=== PATIENT | female | born 1960 | race Caucasian/White ===

== ENCOUNTER 2016-08-22 05:17 | Inpatient (IN) | payer MEDICARE ==
[~2016-08-22] VITALS: Ht 160 cm; Wt 120.4 kg
[2016-08-22] VITALS (7 sets, daily range): BP systolic 105–154; BP diastolic 51–107
[~2016-08-22 05:17] MED LIST: ALPARAZOLAM0.5 MG PO; AMLO5TAB PO; B12 INJ.,1000 MCG/M IM; C-10001000 MG PO; CIPRO 500MG TA500 MG PO; DEPAKOTE 500MG500 MG PO; DOXYCYCLINE HY100 M4 PO; ESCITALOPRAM 2020 MG PO; FLAGYL 500MG.500 MG PO; FUROSEMIDE 20MG20 MG PO; HEARTBURN RELI200 MG PO; IMITREX100 MG PO; KEPPRA XR500 MG PO; LEXAPRO 10 MG T10 MG PO; LORATADINE10 MG PO; LORTAB 5/500 501 TAB PO; METOPROLOL SUCC25 M1 PO; NITROSTAT0.4 MG SL; NORTRIPTYLINE H75 MG PO; NORTRIPTYLINE10 MG PO; PERCOCET 650 MG1 TAB PO; PHENERGAN 25MG.25 M1 PO; PRAVASTATIN20 MG PO; PREDNISONE 10MG10 MG PO; PREMPRO1 TAB PO; PROTONIX 40MG T40 MG PO; PYRIDOXINE PO; RITE AID BIO2500 MCG PO; TESSALON PERLE200 MG PO; TYLENOL W/CODEI1 TA2 PO; VERAPAMIL HCL40 MG PO; VERAPAMIL HCL80 MG PO; VITAMIN B-12100 MCG PO; VITAMIN D400 UNI1 PO; VITAMIN D50000 I1 PO; XANAX 0.5MG TA0.5 MG PO
[2016-08-22] MEDS ORDERED: VERAPAMIL HCL40 MG PO (05:22)
[2016-08-22] MEDS ORDERED: VITAMIN D3 COM1 EACH PO (05:23)
[2016-08-22] MEDS ORDERED: LOSARTAN POTAS100 MG PO (05:26)
[2016-08-22] MEDS ORDERED: PHENERGAN W/CO473 ML PO (05:27)
--- NOTE | 2016-08-22 06:02 | Emergency Room Report ---
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 PT STATES SHE IS HAVING PAIN IN LEFT KNEE AND ANKLE Onset of symptoms date/time:08/22/16 or onset unknown for: Treatment Prior to Arrival: PT TRANSPORTED TO ED BY [facility] AT 0445. [facility] Provided by:EMT Sepsis Risk Assessment: Temp: 98.6 B/P: 144/107 MAP: 119 Pulse: 109 Resp: 18 Recent fever? N Clinical Suspician of Infection? N Mental Status: 1 - Regular (Normal Baseline) Sepsis Risk:Low Sepsis Risk Have you (or family members/close friends) recently traveled outside the [place]? N If Yes, where/when: Have you had exposure to infectious disease within the past month? N TB? Other? Specify: Comment The patient is brought in by ambulance after a fall complaining of LEFT knee and ankle injury. She says that she developed a cough with yellow sputum and blood and a fever up to 102 degrees as well as shortness of breath and wheezing 6 days ago. She saw her primary care provider on Monday and was put on steroids. She says that she is ALLERGIC to steroids and since then has been shaky and weak. Her legs gave out on her tonight and she fell. ALLERGIES Coded Allergies: prednisone (08/22/16) Home Medications Reported Medications PYRIDOXINE HCL (Pyridoxine (B6) 50MG) 50 MG PO DAILY Levetiracetam (Keppra Xr) 1,500 MG PO BID APAP 300MG W/CODEINE 30MG (Acetaminophen-Cod #3 Tablet) 1 TAB PO Q6HP Divalproex Sodium (Depakote) 750 MG PO BID NORTRIPTYLINE HCL (Nortriptyline Hydrochloride) 100 MG PO QHS Escitalopram Oxalate (Escitalopram 20MG) 10 MG PO DAILY Verapamil Hcl (Verapamil) 120 MG PO TID Mv-Mn/Iron/FA/Herbal Cmplx#190 (Vitamin D3 Complete Caplet) 1 EACH PO WEEKLY Losartan Potassium (Losartan 100MG) 100 MG PO DAILY PROMETHAZINE W/CODEINE (Promethazine-Codeine Syrup) 2.5 ML PO Q4HP PRN COUGH History Medical History General CAD? No Angina: No [place]: No Hypertension? Yes Hyperlipidemia? Yes CHF? No DVT? No PE? No COPD? No Asthma? No Anemia? No GERD? Yes Gastric ulcers? No GI Bleed? No Hernia? No Thyroid Problems? No Hypothyroidism? No CVA? No Seizures? Yes Diabetes? No Renal Insuffiency? No End Stage Renal Disease? No UTI? No Stones? Yes BPH? No GB Disease: Yes Nephritic Syndrome? No Asplenia? No Hepatitis? No Sickle Cell Disease? No Arthritis? Yes Migraines? Yes Cataracts? No Glaucoma? No MRSA? No HIV? No TB? No Anxiety? Yes Depression? Yes Cancer? 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 denies: nose discharge. Respiratory cough, shortness of breath, wheezing Musculoskeletal see HPI Physical Exam Vital Signs Vital Signs Date Time Temp Pulse Resp B/P Pulse O2 O2 Flow FiO2 Ox Delivery Rate 08/22 0650 108 18 155/38 90 2 08/22 0633 2 08/22 0633 2 08/22 0617 88 08/22 0517 98.6 109 18 144/107 95 General Appearance normal appearance, WD/WN Eye Exam - bilateral eye normal exam, bilateral eye PERRL, bilateral eye EOMI Ear, Nose, Throat hearing grossly normal, normal ENT inspection, Oropharynx unremarkable Neck normal inspection, non-tender, supple, full range of motion Respiratory Status Yes: trachea midline, chest symmetrical, non tender chest. No: respiratory distress. Lung Sounds bilateral: normal breath sounds, lungs clear. Cardiovascular normal exam, regular rate/rhythm, no peripheral edema, no gallop, no JVD, no murmur, no rub, normal peripheral pulses Peripheral Pulses Pulses normal Yes Gastrointestinal normal bowel sounds, normal exam, non tender, soft, no organomegaly Back normal inspection, no CVA tenderness, no vertebral tenderness Extremities 2+ pitting edema of both lower extremities., diffuse tenderness LEFT knee without effusion, ecchymosis, edema, or deformity., tenderness of the LEFT ankle medial and lateral without ecchymosis. Distal neurovascular status intact. No deformity. 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 No Abram was queried for this patient? Yes Reference #: [id number] Comment 17 rxs. last rx 120 tyl #3 on 08/06/16. Results/Orders Laboratory Tests 08/22/16 0650: Influenza Type A Ag NOT DETECTED, Influenza Type B Ag NOT DETECTED 08/22/16 0637: Lactic Acid 1.5, Peripheral Blood Smear Pending 08/22/16 0637: Sodium 141, Potassium 4.0, Chloride 103, Carbon Dioxide 32, BUN 21 H, Creatinine 0.9, Estimated Creat Clear 122, Estimated GFR (MDRD) 64, Glucose 73 L, Calcium 8.7, Total Bilirubin 0.6, AST 21, ALT 18, Alkaline Phosphatase 218 H , Total Protein 6.0 L, Albumin 1.8 L, Globulin 4.2 H, Albumin/Globulin Ratio 0.4 L, WBC 36.8 *H, RBC 4.32, Hgb 9.5 L, Hct 31.6 L, MCV 73.1 L, RDW 18.2 H , Plt Count 450 H, MPV 8.0, Gran % 90.3 H, Gran # 33.4 H, Total Counted 100, Lymphocytes % 5.4 L, Monocytes % 3.5, Eosinophils % 0.3, Basophils % 0.6, Neutrophils 83 H, Band Neutrophils 2, Lymphocytes (Manual) 5 L, Lymphocytes # 2.0, Monocytes (Manual) 3, Monocytes # 1.3 H, Eosinophils # 0.1, Basophils # 0.2, Metamyelocytes 3 H, Myelocytes 2 H, Promyelocytes 2, Platelet Estimate SLIGHT INCREASE, Hypochromasia 2+, Anisocytosis 2+, Microcytosis 1+, PUBS MCHC 30.1 L, MCH 22.0 L, Mycoplasma pneumon IgM NON-REACTIVE Current Medication Orders Sig/Hema Start time Last Medication Dose Route Stop Time Status Admin Azithromycin 500 MG ONCE ONE 08/22 714 DC 08/22 Sodium Chloride 250 ML IV 08/22 0814 0745 Ceftriaxone Sodium 1 GM ONCE ONE 08/22 0615 DC 08/22 Sodium Chloride 50 ML IV 08/22 0744 0711 Ceftriaxone Sodium 0 .STK-MED ONE 08/22 0707 DC IV Sodium Chloride 50 ML .STK-MED ONE 08/22 0706 DC IV Albuterol/Ipratropium 3 ML ONCE ONE 08/22 0630 DC 08/22 INH 08/22 0631 0632 Albuterol/Ipratropium 0 .STK-MED ONE 08/22 0630 DC INH Sodium Chloride 10 ML PRN PRN 08/22 0615 AC IV 08/23 0615 Orders Procedure Date/time Status Decision to admit 08/22 719 Active DIFFERENTIAL-WBC 08/22 636 Complete RT O2 Installation/Change Set 08/22 632 Active RT O2 Therapy, Monitor/Maintai 08/22 632 Active RT Aerosol Treatment, Provide 08/22 632 Active RT REQUEST DUONEB 08/22 628 Active CHEST-PORTABLE 08/22 615 Active IV SALINE LOCK 08/22 615 Active OXYGEN PER NURSE 08/22 615 Active CULTURE, SPUTUM 08/22 615 Active CULTURE, BLOOD 08/22 615 Active LACTIC ACID 08/22 615 Complete INFLUENZA A&B ANTIGENS 08/22 0616 Complete CBC WITH AUTO DIFF 08/22 615 Complete CHEM 12 PROFILE 08/22 615 Complete KNEE-3 VIEWS-LT 08/22 527 Active ANKLE-LT-3 VIEWS 08/22 527 Active XRAY/CT/US XRAY/CT/US XRAY chest, ankle, knee Comment X-ray interpreted by Jacinto Hansen M.D.: Knee: Degenerative changes with spurs, no fracture or dislocation Ankle: Degenerative changes, old ossicles distal to each malleolus, no change from prior x-ray, no acute fracture or dislocation Chest: Large infiltrate RIGHT upper lung and RIGHT lower lung Progress - The patient was seen in the emergency department by Dr. Pulido. Departure Departure Disposition Still a Patient Clinical Impression Primary Impression: Community acquired pneumonia Secondary Impressions: Respiratory failure with hypoxia Qualifiers: Chronicity: acute Qualified Code: J96.01 - Acute respiratory failure with hypoxia Condition STABLE Referrals Brian STARK,Tj [facility] ED Critical Care Critical Care Yes Time spent 30-74 min Vital system(s) involved: Respiratory Failure I was present at bedside for Coordinating pt's care, During my initial exam, Reviewing lab results, Discussing pt condition, Examining radiographs at 0918
[2016-08-22 06:51] LABS: HEMOGLOBIN 9.5 g/dL (12.2-16.2); LYMPH % 5.4 % (10-50.0)
[2016-08-22 07:31] LABS: NEUTROPHILS 83 % (42-76)
--- NOTE | 2016-08-22 12:14 | HISTORY AND PHYSICAL REPORT ---
Demographics: Admit date: 08/22/16 Chief complaint: Fall PRIMARY DIAGNOSIS: community-acquired pneumonia Allergies: Coded Allergies: prednisone (08/22/16) History of present illness: History of present illness: 56-year-old female with medical history significant for hypertension and seizures as well as arthritis of the lower extremities presented to the emergency department early this morning with complaints of LEFT knee and ankle pain after a fall at home. Patient states she been so weak she simply fell injuring her LEFT leg. Workup was begun in the emergency department from an orthopedic standpoint LEFT ankle and knee were stable. In the process of evaluation it was detected that patient was hypoxic with a room air O2 sat of 81 percent. Patient then gave additional history that she was seen in my office a week ago with cough and chest congestion. She was prescribed either a Medrol Dosepak or a Z-Reynaldo, the patient does not recall which one and diagnosed with bronchitis. Additional workup in the emergency department revealed RIGHT lung pneumonia and she has been admitted for treatment of her pneumonia due to the additional findings of white count of 38,000 and her hypoxia. Past medical history: Family HX Family Hx Insignificant Yes Immunization HX DT/Tetanus > 10 Years Ago Flu NEVER Pneumonia Refuses General CAD? No Angina: No [place]: No Hypertension? Yes Hyperlipidemia? Yes CHF? No DVT? No PE? No COPD? No Asthma? No Anemia? No GERD? Yes Gastric ulcers? No GI Bleed? No Hernia? No Thyroid Problems? No Hypothyroidism? No CVA? No Seizures? Yes Diabetes? No Renal Insuffiency? No UTI? No Stones? Yes BPH? No GB Disease: Yes Nephritic Syndrome? No Asplenia? No Hepatitis? No Sickle Cell Disease? No Arthritis? Yes Migraines? Yes Cataracts? No Glaucoma? No MRSA? No HIV? No TB? No Anxiety? Yes Depression? Yes Cancer? No Past Surgical HX Previous Surgery?Y Gallbladd Appendectomy GALL STONES TUBAL GASTRIC BYPASS Current home meds: Reported Medications APAP 300MG W/CODEINE 30MG (Acetaminophen-Cod #3 Tablet) 1 TAB PO Q6HP PYRIDOXINE HCL (Pyridoxine (B6) 50MG) 50 MG PO DAILY Levetiracetam (Keppra Xr) 1,500 MG PO BID Divalproex Sodium (Depakote) 750 MG PO BID NORTRIPTYLINE HCL (Nortriptyline Hydrochloride) 100 MG PO QHS Escitalopram Oxalate (Escitalopram 20MG) 10 MG PO DAILY Verapamil Hcl (Verapamil) 120 MG PO TID Mv-Mn/Iron/FA/Herbal Cmplx#190 (Vitamin D3 Complete Caplet) 1 EACH PO WEEKLY Losartan Potassium (Losartan 100MG) 100 MG PO DAILY PROMETHAZINE W/CODEINE (Promethazine-Codeine Syrup) 2.5 ML PO Q4HP PRN COUGH Social Hx: Smoking HX Tobacco No Type N/A Are you/the child exposed to second-hand smoke: No Alcohol Alcohol: No Hx of Drug Use Drug Use? No Patien't marital status is Patient's support system is good Review of systems: Constitutional fever, weakness. Respiratory cough, shortness of breath. Cardiovascular No chest pain, No palpitations Gastrointestinal/Abdominal no symptoms reported Genitourinary no symptoms reported. Musculoskeletal see HPI. Neurological Yes: no symptoms reported. Exam: Lab data for last 24 hours: Laboratory Tests 08/22/16 0650: Influenza Type A Ag NOT DETECTED, Influenza Type B Ag NOT DETECTED 08/22/16 0637: Lactic Acid 1.5 08/22/16 0637: Sodium 141, Potassium 4.0, Chloride 103, Carbon Dioxide 32, BUN 21 H, Creatinine 0.9, Estimated Creat Clear 122, Estimated GFR (MDRD) 64, Glucose 73 L, Calcium 8.7, Total Bilirubin 0.6, AST 21, ALT 18, Alkaline Phosphatase 218 H , Total Protein 6.0 L, Albumin 1.8 L, Globulin 4.2 H, Albumin/Globulin Ratio 0.4 L, WBC 36.8 *H, RBC 4.32, Hgb 9.5 L, Hct 31.6 L, MCV 73.1 L, RDW 18.2 H , Plt Count 450 H, MPV 8.0, Gran % 90.3 H, Gran # 33.4 H, Total Counted 100, Lymphocytes % 5.4 L, Monocytes % 3.5, Eosinophils % 0.3, Basophils % 0.6, Neutrophils 83 H, Band Neutrophils 2, Lymphocytes (Manual) 5 L, Lymphocytes # 2.0, Monocytes (Manual) 3, Monocytes # 1.3 H, Eosinophils # 0.1, Basophils # 0.2, Metamyelocytes 3 H, Myelocytes 2 H, Promyelocytes 2, Platelet Estimate SLIGHT INCREASE, Hypochromasia 2+, Anisocytosis 2+, Microcytosis 1+, PUBS MCHC 30.1 L, MCH 22.0 L, Mycoplasma pneumon IgM NON-REACTIVE Microbiology 08/22 636 BLOOD: Anaerobic Blood Culture - RECD 08/22 636 BLOOD: Aerobic Blood Culture - RECD 08/22 636 BLOOD: Anaerobic Blood Culture - RECD 08/22 636 BLOOD: Aerobic Blood Culture - RECD 08/22 615 SPUTUM: Sputum Culture - ORD 08/22 615 SPUTUM: Gram Stain - ORD Admission vital signs: 1ST Vital Signs Result Date Time Pulse Ox 95 08/22 516 B/P 144/107 08/22 516 Temp 98.6 08/22 516 Pulse 109 08/22 516 Resp 18 08/22 516 O2 Flow Rate 2 08/22 632 Additional information: Patient is mildly tachypnea even with nasal cannula oxygen in place. Pupils are reactive to light. External ears are normal. Oropharynx is clear with moist mucous membranes. Neck has no lymphadenopathy. Lungs have rales in both upper and lower lobes of the RIGHT lung. LEFT lung is clear. Heart has regular rate and rhythm. Abdomen is obese and soft. Extremities have no edema. Patient has palpable joint line tenderness along the LEFT knee as well as pain in the LEFT ankle with range of motion. Plan: Problem List 1. Community acquired pneumonia 2. Respiratory failure with hypoxia 3. BMI 45.0-49.9, adult 4. Ankle sprain Plan: Admit for IV antibiotics, serial x-rays and complete blood counts. Home medicines of been ordered.
--- NOTE | 2016-08-22 13:40 | PHARMACY CLINIC NOTE ---
Patient Demographics Patient Demographics Admission date: 08/22/16 Date: 08/22/16 Time: 1339 Allergies Coded Allergies: prednisone (08/22/16) HEIGHT- FT: 5 IN: 3.00 K.400 VTE General Information Labs: Laboratory Tests 08/22 0637 Hematology Hgb (12.2 - 16.2 g/dL) 9.5 L Hct (37.0 - 47.0 %) 31.6 L Plt Count (142 - 424 K/mm3) 450 H Disclaimer The following section includes nursing documentation that has been pulled in for pharmacy review. Clinical trial participant? No VTE prophylaxis [id number] VTE prophylaxis ordered? Yes Type of prophylaxis/treatment: LUANNE at 1341
[2016-08-22] MEDS ORDERED: NORTRIPTYLINE H25 M1 PO (13:43)
[2016-08-22] MEDS ORDERED: LEXAPRO 10 MG T10 MG PO (13:43)
--- NOTE | 2016-08-22 20:11 | RADIOLOGY REPORT PS360 ---
CHEST-PORTABLE ORDERING PHYSICIAN : Jacinto Hansen MD PATIENT AGE: 56 years GENDER: Female INDICATION: cough, fever TECHNIQUE: AP portable chest COMPARISON: Previous chest film 01/31/2010 FINDINGS Pneumonia right lung Very dense Dense, prominent consolidation with air bronchogram at right upper lobe extending peripherally Slightly less dense infiltrate throughout right lower lobe. Partially obscures right hemidiaphragm The left lung appears stable. Heart appears upper normal size. Right tish is upper normal prominence. Follow-up chest film important to resolution of exclude underlying abnormality right tish. Superior mediastinum satisfactory. IMPRESSION: Pneumonia throughout right lung. Dense consolidation most pronounced at right upper lobe. Diffuse infiltrate also seen right lower lobe Also note generous right tish currently.-Will be Important to follow this pneumonia to resolution to exclude underlying lesion
--- NOTE | 2016-08-22 20:20 | RADIOLOGY REPORT PS360 ---
KNEE-3 VIEWS-LT ORDERING PHYSICIAN : PATIENT AGE: 56 years GENDER: Female INDICATION: INJURY, PAIN Knee pain injury fall left knee pain TECHNIQUE: 3 views left knee COMPARISON: 06/25/2014 left knee. Also 2011 study left knee. FINDINGS Today's nonweightbearing views do show degenerative arthritic changes left knee with narrowing of the medial compartment. Tricompartmental marginal osteophytes are most pronounced and exuberant at the medial aspect of the joint. Scant joint effusion. No fracture evident. There is prominent soft tissue edema throughout the subcutaneous fat. Suggesting edematous state or diffuse lung edema. IMPRESSION: Arthritic changes left knee most evident at medial compartment.- Similar to previous 2013 studies No acute fracture. Suspect small joint effusion at knee Diffuse soft tissue edema throughout the left leg also noted.
--- NOTE | 2016-08-22 20:27 | RADIOLOGY REPORT PS360 ---
ANKLE-LT-3 VIEWS ORDERING PHYSICIAN : PATIENT AGE: 56 years GENDER: Female INDICATION: INJURY, PAIN ankle. Swelling. TECHNIQUE: 3 views left ankle COMPARISON: 10/20/2013 left ankle FINDINGS When compared to the prior study there is a change in appearance at the tip of the lateral malleolus . Appears to be some erosive change here. This could be due avulsion fracture, but with overall question there may be another process accounting for this loss of bone at the tip of the lateral malleolus. May want to exclude exclude gout. An usual site for ostomy myelitis. Doubt other erosive arthritic disease at this point. This will benefit from follow-up. May want to consider MR or CT to further evaluate when feasible. . Orthopedic consult may be helpful is a suspect the patient likely mid for her pneumonia on today's chest film. . There is diffuse swelling throughout left leg including left ankle on which is seen throughout the leg not only at the lateral malleolus. The ankle mortise appears intact. Dome of talus intact. Old stable Fragmentation off tip of medial malleolus is likely reflects old injury and or accessory ossicle... Unchanged IMPRESSION: ------ Irregular appearance at the tip of the lateral malleolus, definite change since prior 2009 and 2013 ankle radiograph . Although question the possibility of avulsion fracture a I am more concerned that this reflects some other erosive process erosive process. Orthopedic consult suggested. Further evaluation may be warranted when feasible . Note comments in text
[2016-08-23] VITALS (8 sets, daily range): BP systolic 122–149; BP diastolic 58–79
--- NOTE | 2016-08-23 07:08 | ACUTE CARE PROGRESS NOTE (QUA) ---
Progress Notes Admission Date: 08/22/16 Antimicrobial stewardship: If this patient was administered antibiotics in the last 48 hours please complete the antimicrobial stewardship section of this template. Subjective Date 08/23/16 Time 0704 Note Patient has no new complaints. She believes her dyspnea is improved. Her reports she is still quite weak and she could not hold onto that can of soda. Patient fell overnight while attempting to go to the bathroom. Patient states her LEFT leg just gave out on her. Patient has crackles primarily in the mid lung posteriorly this morning and base. Improved aeration compared to yesterday. Official ankle x-ray report reveals erosive changes at the lateral malleolus. Blood cultures preliminarily appear to be strep pneumonia Continue current antibiotics. Repeat complete blood count this morning. CT scan of the LEFT ankle Objective Findings Last VS-Temp:97.6 B/P:149/78 Pulse:78 Resp:20 SaO2:97 OXYGEN Last weight lbs:259 oz:6 K.651 Method:Bed Scales Reviewed: medications, vital signs, lab results Assessment/Plan Problem List 1. Community acquired pneumonia 2. Respiratory failure with hypoxia Qualifiers: Chronicity: acute Qualified Code: J96.01 - Acute respiratory failure with hypoxia 3. BMI 45.0-49.9, adult 4. Ankle sprain Patient condition Stable This inpt stay is expected to cross 2 MNs from start of care Yes Antibiotic Stewardship (2) Current Culture Results Microbiology 08/22 636 BLOOD: Anaerobic Blood Culture - RES 08/22 636 BLOOD: Aerobic Blood Culture - RES 08/22 615 SPUTUM: Sputum Culture - ORD 08/22 615 SPUTUM: Gram Stain - ORD Infxn that will respond? Yes Right drug,dose,and route? Yes More targeted antbx? Yes How long atbx needed? 14 at 0707
[2016-08-23 07:14] LABS: LYMPH # 2.5 K/mm3 (0.7-4.5); LYMPH % 11.4 % (10-50.0)
[2016-08-23 07:22] LABS: HEMOGLOBIN 8.4 g/dL (12.2-16.2)
[2016-08-23 08:50] LABS: NEUTROPHILS 73 % (42-76)
--- NOTE | 2016-08-23 09:20 | RADIOLOGY REPORT PS360 ---
CT EXT.LOWER-LT-W/O CONTRAST INDICATION: Pain and swelling following injury, abnormal radiograph RECENT FALL,SWELLING, ABNORMAL XRAY ORDERING PHYSICIAN: Ramin Pulido MD PATIENT AGE: 56 years COMPARISON: Radiograph of 08/22/2016 TECHNIQUE: Axial images are obtained without contrast. Sagittal and coronal reformatted images are reviewed as well. FINDINGS: There is extensive soft tissue swelling in the lower extremity with subcutaneous edema. Prominent superficial veins are also noted consistent with varices. There is nondisplaced fracture involving the posterior distal tibia extending into the posterior articular surface. Comminuted avulsion fracture involves the fibular tip. In addition, there are several small calcific densities at the tip of the fibula as noted on the radiograph. These are separate from the avulsion fracture fragment. There is a small avulsion fracture involving the medial malleolus well.. In addition there is an avulsion fracture involving the lateral and anterior aspect of the tibia. This is anterior to the tibiofibular junction. The talar dome has an unremarkable appearance. IMPRESSION: 1. Acute fractures involving the first or distal tibia nondisplaced, anterior lateral tibia minimally displaced x 3 mm, an avulsion fracture of the tip of the lateral malleolus. 2. There are several faint radiodensities at the tip of the lateral malleolus. This could be sequela from old injury. Continued follow-up recommended. A lytic process is felt to be less likely but not totally excluded. 3. Extensive soft tissue slight about the ankle IMPRESSION:
--- NOTE | 2016-08-23 16:49 | CONSULT NOTE ---
Consultation findings: Referring physician: Dr. Pulido Date of examination: 08/23/16 Time of examination: 1200 Exam findings: The patient is a 56-year-old female who has been medically problems including a seizure disorder. She is a somewhat poor historian but recalls falling on Monday. She states she was not able to walk and finally presented to the emergency department with LEFT ankle pain and also progressive chest pain. There are ER evaluation for her LEFT ankle, she was noted to be short of breath and a workup led to the diagnosis of a pneumonia with a white count elevated to approximately 38,000. The patient has been admitted for care of these issues. Examination shows the patient to be lying in bed comfortably sleeping. Directed examination of the LEFT lower extremity shows pedal pulses to be intact. The LEFT lower extremity is somewhat edematous. She is sensate to light touch. She is mildly tender over the medial malleolus and a bit more tender over the lateral malleolus. X-rays and a CT scan reviewed. These show we will send fractures of the posterior tibial plafond (posterior malleolus fracture) seems to involve approximately 10 percent of the articular surface. This is very minimally displaced. There is also avulsion fractures involving the distal fibula as well as what appears to be evidence of prior avulsion fractures and what appears to be a recent avulsion injury of the medial malleolus. Impression: 1) posterior malleolar fracture, minimally displaced 2) recent avulsion fracture of both the medial and lateral malleolus Recommendations: From the perspective of the avulsion fractures, we would typically treat these much like an ankle sprain. Her posterior malleolar fracture would likely better be served by treating her in a posterior splint initially and then transitioning to a short leg cast. It could be treated in a Cam Walker however, the patient may not be willing to keep this on at all times. She is experiencing discomfort with the required dorsiflexion of the ankle necessary to position a splint at this time, we will request the nurses elevate the ankle as much as possible tonight and will attempt to dorsiflex the ankle a bit in the morning sufficient to allow a splint to dry. In the meantime, recommend nonweightbearing LEFT ankle and elevation as much as possible for tonight. at 5649
[2016-08-24] VITALS (8 sets, daily range): BP systolic 119–149; BP diastolic 70–95
--- NOTE | 2016-08-24 08:12 | ACUTE CARE PROGRESS NOTE (QUA) ---
Progress Notes Admission Date: 08/22/16 Antimicrobial stewardship: If this patient was administered antibiotics in the last 48 hours please complete the antimicrobial stewardship section of this template. Subjective Date 08/24/16 Time 0809 Note Patient has no complaints this morning. She feels less dyspneic. Her cough remains productive. She appears well but is using nasal cannula oxygen. Lungs have rales in the mid chest anteriorly and base posteriorly. Heart has a regular rate and rhythm. Abdomen is soft. LEFT ankle is resting elevated on pillow Blood cultures are growing Streptococcus pneumonia sensitive to Rocephin While patient is still here in the hospital her Rocephin will be changed to 2 g every 12 hours. PICC line will be inserted today. Repeat chest x-ray. I appreciate the orthopedic service, Dr. Craig, evaluation of the patient and he plans to see her again today. Objective Findings Last VS-Temp:97.9 B/P:141/71 Pulse:100 Resp:18 SaO2:92 OXYGEN Last weight lbs:258 oz:5 K.169 Method:Bed Scales Assessment/Plan Problem List 1. Community acquired pneumonia 2. Respiratory failure with hypoxia Qualifiers: Chronicity: acute Qualified Code: J96.01 - Acute respiratory failure with hypoxia 3. BMI 45.0-49.9, adult 4. Ankle sprain 5. Sepsis due to Streptococcus pneumoniae Patient condition Stable This inpt stay is expected to cross 2 MNs from start of care Yes Antibiotic Stewardship (2) Infxn that will respond? Yes Right drug,dose,and route? Yes More targeted antbx? Yes at 0811
--- NOTE | 2016-08-24 14:17 | RADIOLOGY REPORT PS360 ---
CHEST PORTABLE-PICC PLACEMENT CLINICAL INDICATION: PICC LINE INSERTION ORDERING PHYSICIAN: Ramin Pulido MD PATIENT AGE: 56 years COMPARISON: 08/22/2016 FINDINGS: Right upper extremity PICC line has been inserted with the tip in region of SVC. No change right-sided pneumonia in the upper and lower lobe IMPRESSION: Good position of the PICC line
[2016-08-25 06:55] LABS: HEMOGLOBIN 8.5 g/dL (12.2-16.2); LYMPH # 2.2 K/mm3 (0.7-4.5); LYMPH % 15.4 % (10-50.0)
[2016-08-25 08:19] VITALS: BP 153/72
--- NOTE | 2016-08-25 08:46 | ACUTE CARE PROGRESS NOTE (QUA) ---
Progress Notes Subjective Date 08/25/16 Time 0843 Note Patient reports feeling about the same. PICC line was placed yesterday. Her LEFT ankle is now in a short leg cast. She appears comfortable. Oropharynx is moist. Lungs still have rales in the RIGHT mid and posterior base. Heart has regular rate and rhythm. Chest x-ray showed pneumonia appears about the same used Continue Rocephin 2 g every 12 hours. Repeat complete blood count in the morning. Monitor her anemia as well as white count. Add incentive spirometry and she is to get out of bed to chair today Objective Findings Last VS-Temp:97.7 B/P:153/72 Pulse:83 Resp:20 SaO2:96 OXYGEN Last weight lbs:263 oz:3 K.38 Method:Bed Scales Laboratory Tests 08/25/16 0615: WBC 14.2 H, RBC 3.81 L, Hgb 8.5 L, Hct 27.9 L, MCV 73.3 L, RDW 19.0 H, Plt Count 387, MPV 7.8, Gran % 75.6, Gran # 10.7 H, Lymphocytes % 15.4, Monocytes % 6.0, Eosinophils % 2.0, Basophils % 1.0, Lymphocytes # 2.2, Monocytes # 0.9, Eosinophils # 0.3, Basophils # 0.1, PUBS MCHC 30.4 L, MCH 22.3 L Assessment/Plan Problem List 1. Community acquired pneumonia 2. Respiratory failure with hypoxia Qualifiers: Chronicity: acute Qualified Code: J96.01 - Acute respiratory failure with hypoxia 3. BMI 45.0-49.9, adult 4. Ankle sprain 5. Sepsis due to Streptococcus pneumoniae Patient condition Stable Plan: continue current care This inpt stay is expected to cross 2 MNs from start of care Yes Antibiotic Stewardship (2) Infxn that will respond? Yes Right drug,dose,and route? Yes More targeted antbx? Yes at 0845
[2016-08-25 10:13] VITALS: BP 153/72
[2016-08-25 11:49] VITALS: BP 134/90
--- NOTE | 2016-08-25 15:10 | ACUTE CARE PROGRESS NOTE ---
Progress note Date: 08/25/16 Assessment: Alert cooperative in no apparent distress. Sensate to light touch. Moves toes. No evident cast complications. Impression: 1. Community acquired pneumonia 2. Respiratory failure with hypoxia Qualifiers Chronicity: acute Qualified Code: J96.01 - Acute respiratory failure with hypoxia 3. BMI 45.0-49.9, adult 4. Ankle sprain 5. Sepsis due to Streptococcus pneumoniae Plan: From an orthopaedic standpoint, the patient should be touchdown weightbearing on the involved LEFT leg. Cast will help hold the posterior malleolar fragment in position. It is 10 percent or less of the articular surface and so should be amenable to closed nonsurgical treatment. Recommend elevation of the involved extremity to help decrease edema as well. Antibiotic Stewardship (2) Infxn that will respond? Yes Right drug,dose,and route? Yes More targeted antbx? Yes at 4200
[2016-08-25 16:00] VITALS: BP 113/63
[2016-08-25 19:52] VITALS: BP 154/94
[2016-08-25 21:55] VITALS: BP 154/94
[2016-08-26] VITALS (9 sets, daily range): BP systolic 113–145; BP diastolic 68–96
[2016-08-26 06:52] LABS: HEMOGLOBIN 8.2 g/dL (12.2-16.2); LYMPH # 2.8 K/mm3 (0.7-4.5)
--- NOTE | 2016-08-26 07:22 | ACUTE CARE PROGRESS NOTE (QUA) ---
Progress Notes Subjective Date 08/26/16 Time 0721 Note Patient has no complaints. She set up in a chair most of the day yesterday. On her incentive spirometer she can occasionally get the spirometer 2000 ML's. Her cough is producing clear sputum. She looks well. Lung exam is significant for dry crackles in the posterior aspect of the RIGHT lung. LEFT lung is clear. Continue Rocephin 2 g every 12 hours. Clinically patient is improving although chest x-ray is lagging behind. Continue current antibiotics. Transfer to swing bed if insurance is agreeable. Continue incentive spirometry and current level of activity Objective Findings Last VS-Temp:97.8 B/P:138/96 Pulse:91 Resp:20 SaO2:90 OXYGEN Last weight lbs:264 oz:9 K.004 Method:Bed Scales Laboratory Tests 08/26/16 0630: WBC 14.1 H, RBC 3.78 L, Hgb 8.2 L, Hct 27.9 L, MCV 73.9 L, RDW 19.6 H, Plt Count 413, MPV 7.6, Gran % 70.7, Gran # 10.0 H, Lymphocytes % 20.0, Monocytes % 6.0, Eosinophils % 2.2, Basophils % 1.0, Lymphocytes # 2.8, Monocytes # 0.9, Eosinophils # 0.3, Basophils # 0.1, PUBS MCHC 29.4 L, MCH 21.8 L Assessment/Plan Problem List 1. Community acquired pneumonia 2. Respiratory failure with hypoxia Qualifiers: Chronicity: acute Qualified Code: J96.01 - Acute respiratory failure with hypoxia 3. BMI 45.0-49.9, adult 4. Ankle sprain 5. Sepsis due to Streptococcus pneumoniae Patient condition Improving Plan: continue current care This inpt stay is expected to cross 2 MNs from start of care Yes Antibiotic Stewardship (2) Infxn that will respond? Yes Right drug,dose,and route? Yes More targeted antbx? Yes at 0722
--- NOTE | 2016-08-26 14:45 | ACUTE CARE PROGRESS NOTE ---
Progress note Date: 08/26/16 Assessment: Patient is awake, alert, no apparent distress. She complains of no pain in the LEFT ankle and states she has been compliant with touchdown weightbearing. Her cast is in appropriate degree of ankle dorsiflexion which should assist in holding the posterior malleolar fracture reduced. Toes are warm and dry in sensate to light touch. Capillary refill around 2 seconds. No cast complications noted. Impression: 1. Community acquired pneumonia 2. Respiratory failure with hypoxia Qualifiers Chronicity: acute Qualified Code: J96.01 - Acute respiratory failure with hypoxia 3. BMI 45.0-49.9, adult 4. Ankle sprain 5. Sepsis due to Streptococcus pneumoniae 6. Fracture, ankle Plan: I have advised the patient to maintain touchdown weightbearing for approximately 6 weeks. We'll plan on seeing her back in the clinic once she is discharged some roughly 10 days from now and x-raying her in the cast. Anticipate she'll need at least one cast change due to expected decrease in edema and muscle atrophy. From an orthopaedic standpoint she could be discharged when her medical condition has resolved sufficiently as determined by Dr. Pulido. Antibiotic Stewardship (2) Current Culture Results Microbiology 08/22 636 BLOOD: Anaerobic Blood Culture - COMP STREPTOCOCCUS PNEUMONIAE 08/22 636 BLOOD: Aerobic Blood Culture - COMP STREPTOCOCCUS PNEUMONIAE 08/22 615 SPUTUM: Sputum Culture - CAN Cancelled: Auto-cancelled after 3 days. 08/22 615 SPUTUM: Gram Stain - CAN Cancelled: Auto-cancelled after 3 days. Infxn that will respond? Yes Right drug,dose,and route? Yes More targeted antbx? Yes at 0411
[2016-08-27] VITALS (7 sets, daily range): BP systolic 123–148; BP diastolic 58–84
--- NOTE | 2016-08-27 08:06 | ACUTE CARE PROGRESS NOTE (QUA) ---
Progress Notes Subjective Date 08/27/16 Time 0804 Note Patient has no complaints this morning. She spent most of the day in the chair yesterday. She did go for brief periods without oxygen. Lowest documented room air sat is 86 percent yesterday evening. Cough is still productive. She denies dyspnea at rest. She's had mild dyspnea with exertion. She is awake and alert. Lungs continued to have rales in the RIGHT posterior mid lung and base with improved aeration. Continue Rocephin 2 g every 12 hours and repeat chest x-ray and labs in a.m. Objective Findings Last VS-Temp:97.7 B/P:148/84 Pulse:92 Resp:20 SaO2:92 OXYGEN Last weight lbs:264 oz:9 K.004 Method:Bed Scales Microbiology 08/27 717 SPUTUM: Sputum Culture - RES 08/27 717 SPUTUM: Gram Stain - RES Assessment/Plan Problem List 1. Community acquired pneumonia 2. Respiratory failure with hypoxia Qualifiers: Chronicity: acute Qualified Code: J96.01 - Acute respiratory failure with hypoxia 3. BMI 45.0-49.9, adult 4. Ankle sprain 5. Sepsis due to Streptococcus pneumoniae 6. Fracture, ankle Patient condition Improving Plan: continue current care This inpt stay is expected to cross 2 MNs from start of care Yes Antibiotic Stewardship (2) Infxn that will respond? Yes Right drug,dose,and route? Yes More targeted antbx? Yes
[2016-08-28] VITALS (8 sets, daily range): BP systolic 119–149; BP diastolic 56–80
[2016-08-28 06:52] LABS: HEMOGLOBIN 8.4 g/dL (12.2-16.2)
[2016-08-28 06:53] LABS: LYMPH # 2.4 K/mm3 (0.7-4.5); LYMPH % 16.1 % (10-50.0)
--- NOTE | 2016-08-28 07:23 | ACUTE CARE PROGRESS NOTE (QUA) ---
Progress Notes Admission Date: 08/22/16 Antimicrobial stewardship: If this patient was administered antibiotics in the last 48 hours please complete the antimicrobial stewardship section of this template. Subjective Date 08/28/16 Time 0721 Note Patient has no new complaints. She has been doing her best to ambulate in the room. She denies shortness of breath. Documented room air sats are at 90 percent. Patient is awake and alert this morning. Lungs have RIGHT basilar rales this morning. Heart has a regular rate and rhythm. Abdomen is soft and obese. Continue current antibiotic regimen. Repeat chest x-ray today. Objective Findings Last VS-Temp:98.3 B/P:119/68 Pulse:90 Resp:20 SaO2:94 OXYGEN Last weight lbs:261 oz:0 K.388 Method:Bed Scales Laboratory Tests 08/28/16 0630: WBC 14.6 H, RBC 3.91 L, Hgb 8.4 L, Hct 27.3 L, MCV 69.7 L, RDW 21.3 H, Plt Count 431 H, Gran % 77.0, Gran # 11.2 H, Lymphocytes % 16.1, Monocytes % 6.9, Lymphocytes # 2.4, Monocytes # 1.0, PUBS MCHC 30.8 L, MCH 21.5 L Assessment/Plan Problem List 1. Community acquired pneumonia 2. Respiratory failure with hypoxia Qualifiers: Chronicity: acute Qualified Code: J96.01 - Acute respiratory failure with hypoxia 3. BMI 45.0-49.9, adult 4. Ankle sprain 5. Sepsis due to Streptococcus pneumoniae 6. Fracture, ankle Patient condition Stable Plan: continue current care This inpt stay is expected to cross 2 MNs from start of care Yes Antibiotic Stewardship (2) Current Culture Results Microbiology 08/27 717 SPUTUM: Sputum Culture - RES 08/27 717 SPUTUM: Gram Stain - RES 08/22 636 BLOOD: Anaerobic Blood Culture - COMP STREPTOCOCCUS PNEUMONIAE 08/22 636 BLOOD: Aerobic Blood Culture - COMP STREPTOCOCCUS PNEUMONIAE Infxn that will respond? Yes Right drug,dose,and route? Yes More targeted antbx? Yes at 0722
--- NOTE | 2016-08-28 08:36 | RADIOLOGY REPORT PS360 ---
CHEST(2 VIEWS-NOT PORTABLE) HISTORY: pneumonia progress ORDERING PHYSICIAN: Ramin Pulido MD PATIENT AGE: 56 years COMPARISON: 08/24/2016 FINDINGS: The cardiomediastinal silhouette and pulmonary vascularity are within normal limits. Consolidation once again noted involving the right lung including right upper, right middle, and right lower lobe with mild right-sided volume loss and tracheal shift to the right. A central obstructing lesion is a consideration. Consider CT chest with contrast for further evaluation. Left lung remains clear. The pneumonia has slightly improved compared to the previous studies. No acute bony anomalies. Suspect small right effusion. PICC line remains in place IMPRESSION: 1. Persistent right-sided pneumonia with mild volume loss. A central obstructing lesion is a consideration. Consider chest CT with contrast for further evaluation. There has been mild improvement in the right sided pneumonia
[2016-08-29] VITALS (22 sets, daily range): BP systolic 103–144; BP diastolic 44–92
[2016-08-29 06:33] LABS: LYMPH # 2.3 K/mm3 (0.7-4.5); LYMPH % 17.7 % (10-50.0)
[2016-08-29 06:34] LABS: HEMOGLOBIN 7.9 g/dL (12.2-16.2)
--- NOTE | 2016-08-29 07:15 | ACUTE CARE PROGRESS NOTE (QUA) ---
Progress Notes Subjective Date 08/29/16 Time 0712 Note Patient is without complaints. She did develop some leg pain yesterday after being up for longer periods of time. This is improved with elevation of the leg. Chest x-ray was performed and shows mild improvement in her x-ray but still quite persistent infiltrates. Her cough is productive of clear sputum. She has not had any fevers. She is awake and alert. Lungs have crackles in the RIGHT mid lung and base heard posteriorly and laterally. Diminished breath sounds anteriorly. Better aeration in the RIGHT lung however. Heart has a regular rate and rhythm. Abdomen is obese and soft. 1. CT scan chest today 2. Transfuse 2 units packed red blood cells Objective Findings Last VS-Temp:97.9 B/P:116/59 Pulse:93 Resp:18 SaO2:90 OXYGEN Last weight lbs:261 oz:0 K.388 Method:Bed Scales Laboratory Tests 08/29/16 0620: WBC 12.7 H, RBC 3.78 L, Hgb 7.9 *L, Hct 28.4 L, MCV 75.2 L, RDW 21.0 H, Plt Count 486 H, MPV 7.9, Gran % 74.0, Gran # 9.4 H, Lymphocytes % 17.7, Monocytes % 6.3, Eosinophils % 1.6, Basophils % 0.5, Lymphocytes # 2.3, Monocytes # 0.8, Eosinophils # 0.2, Basophils # 0.1, PUBS MCHC 27.9 L, MCH 21.0 L Assessment/Plan Problem List 1. Community acquired pneumonia 2. Respiratory failure with hypoxia Qualifiers: Chronicity: acute Qualified Code: J96.01 - Acute respiratory failure with hypoxia 3. BMI 45.0-49.9, adult 4. Ankle sprain 5. Sepsis due to Streptococcus pneumoniae 6. Fracture, ankle Patient condition Improving Plan: continue current care, order additional tests This inpt stay is expected to cross 2 MNs from start of care Yes Antibiotic Stewardship (2) Infxn that will respond? Yes Right drug,dose,and route? Yes More targeted antbx? Yes at 0714
[2016-08-29 08:08] LABS: ABO BLOOD TYPE A; RH BLOOD TYPE POSITIVE
[2016-08-29 08:43] LABS: ANTIHUMAN GLOB CROSSMATCH COMPAT
[2016-08-29 08:44] LABS: ANTIHUMAN GLOB CROSSMATCH COMPAT
--- NOTE | 2016-08-29 09:03 | RADIOLOGY REPORT PS360 ---
CT CHEST W/ CONTRAST ORDERING PHYSICIAN : Ramin Pulido MD PATIENT AGE: 56 years GENDER: Female INDICATION: PERSISTENT PNEUMONIA WITH LITTLE IMPROVEMENT TECHNIQUE: Helical CT scanning performed the chest following 75 cc [id number]. Multiplanar reconstruction CT workstation COMPARISON: PA and lateral chest 120 12/14 and 08/28/2016. Also 08/22/2016. Prior CT abdomen 08/19/2010 also utilized FINDINGS : : Right hemothorax:: Persistent dense consolidation/RUL lobe pneumonia with air bronchograms again evident. This mainly involves the posterior segment RUL but extends into the other segments of the anterior segment.. No central airway lesion.. The right upper lobe bronchus remains patent with branches leading to this pneumonia findings seen compatible with 08/24/2016, with only scant if any based the initial accident report clerk view RLL pneumonia persists also similar previous plain film from 08/24/2016. Posterior basilar segment primarily involved but the infiltrate extends into the other segments Again airway appears lower lobe airway appears patent with no prominent endobronchial lesion nor obstruction.. Moderate to generous volume right pleural effusion is dependent pleural effusion layers along the entire posterior aspect right hemithorax posterior right chest and may contribute to this compression atelectasis towards the right lower lobe Left hemithorax. : Only mild atelectasis with possible scant interstitial infiltrate seen towards posterior left base as well as posterior aspect superior segment. Mediastinum. PICC line enters from right arm with tip at inferior right SVC. Satisfactory . The study was performed as a routine chest not a CTA but we do have fair visualization of pulmonary arteries appear patent to the lower lobe as well as upper lobes bilaterally. No gross PE on this routine chest CT. The great vessels appear satisfactory mediastinum. No prominent hilar nor mediastinal adenopathy. There is a generous most likely reactive lymph node noted right paratracheal region immediately above the carlos measuring 18 mm length and transverse but only 10 mm short axis on coronal image 49 axial slice 23. Most likely reactive The heart appears normal size. No pericardial effusion. Modest Coronary artery calcification LAD Uppermost abdomen. Adrenals appear normal. Cholecystectomy. Right postsurgical changes at GE junction, proximal stomach likely reflecting gastric bypass procedure. Upper portion right kidney included and reveals Nonobstructive right Renal calculi upper right kidney-largest measures over 8 mm.. IMPRESSION 1. Persistent dense RUL & RLL pneumonia/ & consolidation Air Bronchograms seen throughout both of these infiltrates. No remarkable airway obstruction nor underlying airway lesion evident By CT review 2.. Moderate right pleural effusion . Seen diffusely along posterior right chest 3. The RUL and RLL Pneumonia appear similar to 08/28/[address] accident report clerk view . only question incremental improvement compared to plain films chest 08/28/2016
--- NOTE | 2016-08-29 16:54 | CONSULT NOTE ---
Consult Note Note: Reason for consultation: RIGHT lung pneumonia, slow to resolve. Requested by: Dr. Alejandro Pulido Chief complaint: "I started coughing and then got a fever." History of present illness: Mrs. Hernandez is a 56-year-old woman who had been in relatively good health until about a week before admission here on August 22 when she developed cough, productive of discolored and blood-streaked sputum and fever associated with chills and sore throat. She was also feeling quite weak and, on the day of admission, stumbled and fractured her LEFT ankle. She was seen in the emergency room and RIGHT lung pneumonia was identified. She was admitted, treated with fluids and antibiotics and oxygen and a blood culture was positive for Streptococcus pneumoniae. She has recovered fairly well clinically but is still somewhat weak and has persistent physical and radiographic findings of extensive pneumonia on the RIGHT. Because of a concern for an endobronchial obstruction impeding resolution, a CT scan of the chest was performed today. She still has a cough which is productive of small amounts of sometimes discolored sputum but she's had no fever and has had no pleuritic chest pain during this illness. Her appetite is improving. Before this, Mrs. Hernandez had no cough or shortness of breath. She slept well and had no symptoms suggesting obstructive sleep apnea. She had no gastrointestinal complaints and had not noticed melena or blood with stools. She never smoked cigarettes and had no past history of pneumonia. Past medical history: This was significant for bariatric surgery perhaps 10 or 12 years ago. After this, she lost quite a bit of weight but has gained all of it back" and more." She has also had cholecystectomy and the LEFT ankle fracture repair. She is 2 para 2. Last December, she was admitted for small bowel obstruction which was treated conservatively. She's had no further symptoms. She has a history of a seizure disorder which came on in adult life. Her last seizure was more than 10 years ago, however. The CT scan performed today showed evidence of kidney stones but she did not tell me of this problem. She has never had the pneumococcal vaccine and has not had this season's influenza vaccine. There is no history of exposure to tuberculosis. ALLERGIES: No known medication or food ALLERGIES. Social history: Mrs. 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 One of their daughters had thyroid cancer treated surgically. She seems to be doing well the Custards have 5 healthy grandsons. They live in their own home and have no pets. Current medications at home include Keppra, Depakote, nortriptyline, ECitalopram , losartan, verapamil and promethazine with codeine when necessary cough. Family history: This is significant for possible chronic obstructive pulmonary disease in her mother who also had "female cancer." She doesn't recall anyone else having significant lung disease or cancer. Review of systems: She wears bifocals and is edentulous. She has had intermittent nosebleeds. She is troubled by arthritis in her hands and large joints. Apart from the systems mentioned in the present illness, the rest of the 14 point review of systems is currently negative. On physical examination, his his Custard is a very pleasant, overweight woman who is in good spirits and in no acute distress. She is sitting up in bed at a 45 degree angle wearing oxygen at 2 L/m by nasal cannula. Vital signs: Blood pressure 130/73, temperature 97.5, pulse 86, respiratory rate 24, oxygen saturation 93 percent on the supplemental oxygen. Her weight is 261 pounds today but was 250 when she was admitted. Her BMI was 45. She is about 5 feet tall. HEENT: Sclerae clear; conjunctivae pink; nasal mucosa unremarkable; oropharynx is Mallampati IV and there are no mucosal lesions. She is edentulous. Neck: No adenopathy. No JVD at 45 degrees elevation. Chest: Symmetrical expansion; dullness by percussion all over the RIGHT side of the chest posteriorly and normal percussion note on the LEFT. Good breath sounds on the LEFT with his [place] crackles at the LEFT base which clear with deep breathing. There are low pitched inspiratory crackles all over the posterior RIGHT chest. There is bronchial breathing near the RIGHT base and she has egophony over the RIGHT base posteriorly. Vocal fremitus is increased there. Heart: Regular rhythm; no murmur Abdomen: Bowel sounds present; soft, nontender, no masses or organomegaly. Skin: No rash Neurological: Grossly intact Musculoskeletal: No erica arthritis but she is wearing a cast over the LEFT lower leg. Extremities: No clubbing but there is 1+ edema of the RIGHT lower extremity [place] back up to skin and after no rash. She does have faintly pink serpiginous elevated lesions over the lower over the RIGHT lower leg. Not sure what to make of those. There are striae a over the RIGHT and LEFT flanks and the back. I reviewed the admission chest x-ray, the most recent chest x-ray and the CT scan of the chest. There is evidence of consolidation in the RIGHT upper and lower lobes associated with a fairly good size pleural effusion. There is a groundglass density in the LEFT lower lobe which may represent atelectasis. On admission, she had a leukocytosis of 36,000 with a LEFT shift and elevated platelets. She was anemic and the MCV was low. She is receiving transfusions now. Her white count is 12.7 today. A blood culture grew Streptococcus pneumoniae sensitive to ceftriaxone. Assessment and plan: Mrs. Hernandez was admitted with severe multi lobar bacteremic pneumococcal pneumonia complicated by acute respiratory failure. She is improving but still has significant radiographic abnormalities. As we have discussed, I think the pleural effusion should be tapped and sent for a culture, total protein, glucose, LDH and pH (collected in a blood gas syringe). She should also have a total white count and differential. If she has an empyema ( pus or bacteria) or a complicated parapneumonic effusion, a chest tube should be considered. If the infiltrates do not respond, she may have postinfectious organizing pneumonia, a possible complication. In my experience, corticosteroids can cause a prompt resolution and may be helpful. I wouldn't use them if there is any suggestion of persistent infection, however. I think she's been treated for a full week with ceftriaxone and that should be sufficient to treat pneumococcal pneumonia. She is clinically much improved. She doesn't need to continue azithromycin. The cause of the anemia is unclear and, since the MCV was low, blood loss is obviously a possibility. I agree that further investigation can be undertaken as an outpatient. I know you will offer her pneumococcal vaccine and influenza vaccine as she is discharged. I'd like to follow her up in the office if possible. Thank you for the opportunity to participate in Mrs. Hernandez's care. at [phone]
[2016-08-29 18:52] LABS: HEMOGLOBIN 9.9 g/dL (12.2-16.2)
[2016-08-30] VITALS (7 sets, daily range): BP systolic 112–150; BP diastolic 61–90
[2016-08-30 06:35] LABS: HEMOGLOBIN 10.7 g/dL (12.2-16.2); LYMPH # 2.2 K/mm3 (0.7-4.5); LYMPH % 18.7 % (10-50.0)
--- NOTE | 2016-08-30 07:14 | ACUTE CARE PROGRESS NOTE (QUA) ---
Progress Notes Subjective Date 08/30/16 Time 0713 Note Patient has no complaints. Patient was evaluated by Dr. Wood yesterday and he recommended ultrasound-guided thoracentesis of the right-sided pleural effusion to rule out empyema. Patient feels better after receiving 2 units of packed red blood cells. She denies shortness of breath. Lowest documented room air sat is 86 percent. She is awake and alert. Lungs still have rales in the RIGHT mid lung and posterior base with diminished breath sounds. Heart has a regular rate and rhythm. 1. Consult radiology for ultrasound-guided thoracentesis and check routine pleural fluid labs. Objective Findings Last VS-Temp:97.9 B/P:135/68 Pulse:88 Resp:20 SaO2:94 OXYGEN Last weight lbs:266 oz:5 K.797 Method:Bed Scales Laboratory Tests 08/30/16 0600: Sodium 142, Potassium 4.1, Chloride 105, Carbon Dioxide 31, BUN 8, Creatinine 0.7, Estimated Creat Clear 167, Estimated GFR (MDRD) 86, Glucose 79, Calcium 8.5 , WBC 11.8 H, RBC 4.53, Hgb 10.7 L, Hct 35.1 L, MCV 77.4 L, RDW 20.9 H, Plt Count 536 H, MPV 8.3, Gran % 72.0, Gran # 8.5 H, Lymphocytes % 18.7, Monocytes % 7.2, Eosinophils % 1.7, Basophils % 0.4, Lymphocytes # 2.2, Monocytes # 0.8, Eosinophils # 0.2, Basophils # 0.0, PUBS MCHC 30.6 L, MCH 23.7 L 08/29/16 1750: Hgb 9.9 L, Hct 33.7 L 08/29/16 1619: Misc Test Units BLOOD UNIT RELEASE 08/29/16 0910: Misc Test Units BLOOD UNIT RELEASE 08/29/16 0730: Antibody Screen NEGATIVE, Miscellaneous Test POSITIVE Assessment/Plan Problem List 1. Community acquired pneumonia 2. Respiratory failure with hypoxia Qualifiers: Chronicity: acute Qualified Code: J96.01 - Acute respiratory failure with hypoxia 3. BMI 45.0-49.9, adult 4. Ankle sprain 5. Sepsis due to Streptococcus pneumoniae 6. Fracture, ankle Patient condition Stable Plan: continue current care, order additional tests This inpt stay is expected to cross 2 MNs from start of care Yes Antibiotic Stewardship (2) Infxn that will respond? Yes Right drug,dose,and route? Yes More targeted antbx? Yes at 0714
[2016-08-31] VITALS (11 sets, daily range): BP systolic 96–144; BP diastolic 53–88
--- NOTE | 2016-08-31 06:40 | ACUTE CARE PROGRESS NOTE (QUA) ---
Progress Notes Subjective Date 08/31/16 Time 0638 Note Patient has no complaints this morning. Thoracentesis was rescheduled for today due to patient being on prophylactic dosing of Lovenox. She denies any new complaints. In the last 24 hours lowest documented oxygen saturation is 90 percent. She is awake and alert. She does not appear uncomfortable. Lungs have improved aeration with faint rales in the RIGHT lung base. Heart has regular rate and rhythm. Thoracentesis today to rule out empyema. Pleural fluid studies have been ordered. Continue Rocephin Objective Findings Last VS-Temp:97.5 B/P:144/80 Pulse:82 Resp:20 SaO2:94 OXYGEN Last weight lbs:267 oz:0 K.109 Method:Bed Scales Assessment/Plan Problem List 1. Community acquired pneumonia 2. Respiratory failure with hypoxia Qualifiers: Chronicity: acute Qualified Code: J96.01 - Acute respiratory failure with hypoxia 3. BMI 45.0-49.9, adult 4. Ankle sprain 5. Sepsis due to Streptococcus pneumoniae 6. Fracture, ankle Patient condition Improving Plan: continue current care This inpt stay is expected to cross 2 MNs from start of care Yes Antibiotic Stewardship (2) Infxn that will respond? Yes Right drug,dose,and route? Yes More targeted antbx? Yes at 0640
--- NOTE | 2016-08-31 10:25 | RADIOLOGY REPORT PS360 ---
CHEST-PORTABLE HISTORY: PLEURAL EFFUSION FROM PNEUMONIA ORDERING PHYSICIAN: Ramin Pulido MD PATIENT AGE: 56 years COMPARISON: 08/28/2016 FINDINGS: Persistent consolidation is present in both the right upper and right lower lobe consistent with right-sided pneumonia overall not significantly changed. No evidence of pneumothorax status post thoracentesis. Left lung remains clear. Unremarkable cardiovascular structures. Small right effusion noted. IMPRESSION: 1. No evidence of pneumothorax. 2. Continued right-sided pneumonia unchanged
--- NOTE | 2016-08-31 10:33 | RADIOLOGY REPORT PS360 ---
US THORACENTESIS/DIAGNOSTIC HISTORY: Right-sided pneumonia with parapneumonic effusion TECHNIQUE: Under sonographic guidance using aseptic technique and local anesthesia with 1% buffered lidocaine, a 22-gauge spinal needle was inserted into a small loculated fluid collection in the right mid upper chest. Approximately 10 cc of serous fluid was withdrawn and sent to the laboratory for analysis. The patient tolerated the procedure well without evidence of immediate complication. The fluid was difficult to visualize due to patient's body size and loculation. A thoracentesis catheter was not placed and only 10 cc of fluid was removed for diagnostic purposes. Post thoracentesis chest x-ray was negative for pneumothorax. IMPRESSION: Successful and uneventful ultrasound-guided diagnostic thoracentesis
--- NOTE | 2016-08-31 15:28 | RADIOLOGY REPORT PS360 ---
CHEST-PORTABLE HISTORY: FOUR HOUR POST THOROCENTISIS ORDERING PHYSICIAN: Ramin Pulido MD PATIENT AGE: 56 years COMPARISON: To 117 FINDINGS: No evidence of pneumothorax status post thoracentesis. No change of right-sided pneumonia with effusion and right sided PICC line in good position. IMPRESSION: No evidence of pneumothorax.
[2016-09-01 04:07] VITALS: BP 136/51
[2016-09-01 08:08] VITALS: BP 139/58
--- NOTE | 2016-09-01 08:19 | ACUTE CARE PROGRESS NOTE (QUA) ---
Progress Notes Subjective Date 09/01/16 Time 0816 Note Patient has no complaints this morning. Dyspnea is improving. She underwent ultrasound-guided thoracentesis yesterday that removed 10 mL of clear fluid from the pleural space. Routine labs for this have been sent. I have spoken with the lab however and unfortunately the Gram stain and culture have not been performed. She appears well. Lungs continued to have crackles in the RIGHT lung base. Heart has a regular rate and rhythm. Patient will receive a dose of dexamethasone orally today. Monitor for side effects from steroids. If no side effects she will continue some steroids as an outpatient. Anticipate discharge tomorrow Objective Findings Last VS-Temp:97.7 B/P:139/58 Pulse:87 Resp:20 SaO2:95 OXYGEN Last weight lbs:264 oz:5 K.89 Method:Bed Scales Assessment/Plan Problem List 1. Community acquired pneumonia 2. Respiratory failure with hypoxia Qualifiers: Chronicity: acute Qualified Code: J96.01 - Acute respiratory failure with hypoxia 3. BMI 45.0-49.9, adult 4. Ankle sprain 5. Sepsis due to Streptococcus pneumoniae 6. Fracture, ankle 7. Pleural effusion Patient condition Improving Plan: continue current care, make medication changes This inpt stay is expected to cross 2 MNs from start of care Yes Antibiotic Stewardship (2) Infxn that will respond? Yes Right drug,dose,and route? Yes More targeted antbx? Yes at 0818
[2016-09-01 09:55] VITALS: BP 139/58
--- NOTE | 2016-09-01 15:16 | ACUTE CARE PROGRESS NOTE ---
Progress note Date: 09/01/16 Assessment: Cast checked completed. Patient states she is having no complications from it. I see no area of abrasions. Cast fit the still appropriate. Foot warm and dry. Impression: 1. Community acquired pneumonia 2. Respiratory failure with hypoxia Qualifiers Chronicity: acute Qualified Code: J96.01 - Acute respiratory failure with hypoxia 3. BMI 45.0-49.9, adult 4. Ankle sprain 5. Sepsis due to Streptococcus pneumoniae 6. Fracture, ankle 7. Pleural effusion Plan: We'll plan on seeing the patient back in clinic in approximately 2 weeks and x- ray in the cast. At some point, she'll likely need a cast change due to muscle atrophy. Antibiotic Stewardship (2) Infxn that will respond? Yes Right drug,dose,and route? Yes More targeted antbx? Yes at 3373
[2016-09-01 16:14] VITALS: BP 115/63
[2016-09-01 19:36] VITALS: BP 139/80
[2016-09-01 20:50] VITALS: BP 139/80
[2016-09-02 04:10] VITALS: BP 153/72
[2016-09-02 05:36] LABS: Protein, Body Fluid 2.4 g/dL (.)
--- NOTE | 2016-09-02 07:15 | ACUTE CARE PROGRESS NOTE (QUA) ---
Progress Notes Subjective Date 09/02/16 Time 0713 Note Patient tolerated dexamethasone yesterday without any mental status changes, nausea, malaise. O2 sats remained in the mid to high 80s on room air. Cough remains productive only of clear sputum. She is awake and alert. Lungs have improved aeration on the RIGHT with minimal crackles this morning. Heart has regular rate and rhythm. Discharged home today. She'll be discharged with dexamethasone. She will follow up early next week. Unfortunately during her thoracentesis Gram stain and fluid culture was not collected. I do not feel repeat thoracentesis is warranted due to the minimal volume of fluid that was able to be obtained. She will be discharged home on oxygen. Objective Findings Last VS-Temp:98.2 B/P:153/72 Pulse:82 Resp:18 SaO2:95 OXYGEN Last weight lbs:265 oz:7 K.4 Method:Bed Scales Assessment/Plan Problem List 1. Community acquired pneumonia 2. Respiratory failure with hypoxia Qualifiers: Chronicity: acute Qualified Code: J96.01 - Acute respiratory failure with hypoxia 3. BMI 45.0-49.9, adult 4. Ankle sprain 5. Sepsis due to Streptococcus pneumoniae 6. Fracture, ankle 7. Pleural effusion Plan: initiate discharge plan This inpt stay is expected to cross 2 MNs from start of care Yes Antibiotic Stewardship (2) Infxn that will respond? Yes Right drug,dose,and route? Yes More targeted antbx? Yes at 0715
[2016-09-02] MEDS ORDERED: DEXAMETHASONE0.5 MG PO (07:20)
--- NOTE | 2016-09-02 07:20 | Discharge Summary ---
Demographics Admit date: 08/22/16 Discharge date: 09/02/16 Discharge diagnoses Problem List 1. Community acquired pneumonia 2. Respiratory failure with hypoxia 3. BMI 45.0-49.9, adult 4. Ankle sprain 5. Sepsis due to Streptococcus pneumoniae 6. Fracture, ankle 7. Pleural effusion History of present illness History of present illness 56-year-old female with medical history significant for hypertension and seizures as well as arthritis of the lower extremities presented to the emergency department early this morning with complaints of LEFT knee and ankle pain after a fall at home. Patient states she been so weak she simply fell injuring her LEFT leg. Workup was begun in the emergency department from an orthopedic standpoint LEFT ankle and knee were stable. In the process of evaluation it was detected that patient was hypoxic with a room air O2 sat of 81 percent. Patient then gave additional history that she was seen in my office a week ago with cough and chest congestion. She was prescribed either a Medrol Dosepak or a Z-Reynaldo, the patient does not recall which one and diagnosed with bronchitis. Additional workup in the emergency department revealed RIGHT lung pneumonia and she has been admitted for treatment of her pneumonia due to the additional findings of white count of 38,000 and her hypoxia. Patient was admitted and placed on Rocephin and azithromycin. Within 48 hours blood cultures returned as positive growing streptococcal pneumonia. Patient's Rocephin was increased to 2 g every 12 hours. Serial x-rays were done while the patient was hospitalized showed very little improvement in the pneumonia radiologically. Clinically the patient defervesced within 48 hours. She continued to have an oxygen requirement during her entire hospitalization with room air sats of 86 percent the day prior to discharge. PICC line was placed for IV antibiotics and lab draws. It was anticipated patient would need antibiotics for at least 10 days. Pulmonology was consult on the patient and patient was seen by Dr. Wood on August 29. He recommended thoracentesis of pleural effusion that was present. Thoracentesis was performed and 10 mL of fluid was removed. Oral fluid studies were ordered but unfortunately the Gram stain and culture were not collected. Patient was given a small dose of steroids today prior to discharge. She claims history of ALLERGY to prednisone but the patient was given dexamethasone this time. She tolerated a small dose of dexamethasone and this will be continued at discharge as well. Repeat x-ray will be done in the future. Patient had fallen the evening prior to admission. She complained of knee and ankle pain. X-rays initially were interpreted as being without fracture. CT scan of the ankle was performed because of persistent malleoli or pain. A small fracture the LEFT ankle was identified on CT scan and orthopedics was consult to. Patient was placed in a short leg cast. Patient will need follow-up with orthopedist after discharge and this will be arranged. Patient was anemic on admission and H and H dropped. She did require 2 units of packed red blood cells at one point which brought her hemoglobin above 10. Patient was continued on home medicines while hospitalized. Medications Medications: Discharge meds are as noted. Follow up Follow up in office in: 6 DAYS with: Ramin Pulido MD at 0770
[2016-09-02] MEDS ORDERED: OXYGEN2 IH (07:22)
[2016-09-02] MEDS ORDERED: OXYGEN IH (07:22)
[2016-09-02 07:53] VITALS: BP 124/59
[2016-09-02 09:30] VITALS: BP 124/59
[2016-09-02 11:23] LABS: BODY FLUID MONONUCLEAR 24 %; BODY FLUID POLY 0 %; BODY FLUID RBC 2000 /mm3; BODY FLUID WBC 435 MM
[2016-09-02 11:24] LABS: BODY FLUID DIFF COMMEN YELLOW/HAZY
== END 2016-09-02 11:28 | disposition home or self-care (01) | DRG 193 ==
LOC: ER 05:17 → ICU 07:21 → ER 07:21 → ICU 11:39 → 2ND 11:39
PROVIDERS: Emergency Medicine; Family Medicine
PROC: 05HB33Z Insertion of Infusion Device into Right Basilic Vein, Percutaneous Approach (ICD-10-PCS; principal; 2016-08-24)
PROC: 0W993ZZ Drainage of Right Pleural Cavity, Percutaneous Approach (ICD-10-PCS; 2016-08-31)
DX: J18.9 Pneumonia, unspecified organism (principal); A40.3 Sepsis due to Streptococcus pneumoniae; J96.01 Acute respiratory failure with hypoxia; I10 Essential (primary) hypertension; Z91.81 History of falling; S82.842A Displaced bimalleolar fracture of left lower leg, initial encounter for closed fracture; W18.30XA Fall on same level, unspecified, initial encounter
CPT/HCPCS: C1751; G0238; J0456; P9016; Q9967

== ENCOUNTER → 2016-09-19 | Outpatient (CLI) | payer MEDICARE ==
[~2016-09-19] MED LIST changes: +DEXAMETHASONE0.5 MG PO; +LOSARTAN POTAS100 MG PO; +NORTRIPTYLINE H25 M1 PO; +OXYGEN IH; +OXYGEN2 IH; +PHENERGAN W/CO473 ML PO; +VITAMIN D3 COM1 EACH PO
--- NOTE | 2016-09-19 19:59 | RADIOLOGY REPORT PS360 ---
ANKLE-LT-3 VIEWS ORDERING PHYSICIAN : Luke Valverde MD PATIENT AGE: 56 years GENDER: Female INDICATION: HEALING OF LEFT ANKLE FX Follow-up left ankle fracture TECHNIQUE: 3 view left ankle in cast COMPARISON: 08/22/2016 FINDINGS Fiberglas cast in place. The fracture at the tip of the lateral malleolus is again identified. Stable position. . The region is obscured by plaster cast. No osseous bridging evident but stable position. Relative pes planus on lateral view. A would note some wispy density along the posterior malleolus. Good position of posterior malleolus but briefly question the possibility of a healing fracture here on today's study with partially obscured view.. IMPRESSION: Cast in place. Stable position of the fracture off tip of lateral malleolus.
== END ==
LOC: RAD 08:17
DX: S82.892D Other fracture of left lower leg, subsequent encounter for closed fracture with routine healing (principal)

== ENCOUNTER → 2016-11-15 | Outpatient (CLI) | payer MEDICARE ==
--- NOTE | 2016-11-15 10:35 | RADIOLOGY REPORT PS360 ---
ANKLE-LT-3 VIEWS HISTORY: Pain and swelling ORTHOPEDIC AFERCARE ORDERING PHYSICIAN: Luke Valverde MD PATIENT AGE: 56 years COMPARISON: 10/06/2016 FINDINGS: There is soft tissue swelling about the ankle medially and laterally bony debris is present about the medial malleolus. Oblique lucency noted involving the distal fibula consistent with nondisplaced fracture which is in good alignment. Posterior distal tibial fracture is not well delineated. IMPRESSION: Continued soft tissue swelling with healing posterior distal tibial fracture. Fracture line remains lucent involving the distal fibula.
== END ==
LOC: RAD 08:24
DX: Z47.89 Encounter for other orthopedic aftercare (principal)

== ENCOUNTER → 2016-11-29 | Outpatient (CLI) | payer MEDICARE ==
[~2016-11-29] MED LIST changes: +AUGMENTIN 875-1 EACH PO; +CALAN120 MG PO; +FUROSEMIDE 40MG40 M1 PO; +LORTAB 5/3251 TAB PO; +NATURAL VITAM1000 MG PO; +PROMETHAZINE HC25 M1 PO
[2016-11-29 10:32] LABS: BUN 16 mg/dL (7-18)
[2016-11-29 10:34] LABS: GFR (ESTIMATED) 86 ML/MIN (59-)
[2016-11-29 10:53] LABS: ABO BLOOD TYPE A; ANTIHUMAN GLOB CROSSMATCH COMPAT; RH BLOOD TYPE POSITIVE
[2016-11-29 10:54] LABS: ANTIHUMAN GLOB CROSSMATCH COMPAT
== END ==
LOC: LAB 08:34
PROVIDERS: Surgery
DX: C18.2 Malignant neoplasm of ascending colon (principal); Z01.810 Encounter for preprocedural cardiovascular examination; Z01.811 Encounter for preprocedural respiratory examination; Z01.812 Encounter for preprocedural laboratory examination

== ENCOUNTER 2016-11-30 06:52 | Inpatient (IN) | payer MEDICARE ==
[2016-11-30] VITALS (17 sets, daily range): BP systolic 117–156; BP diastolic 59–94
[~2016-11-30] VITALS: Ht 157.5 cm; Wt 121.2 kg
[~2016-11-30 06:52] MED LIST changes: -AUGMENTIN 875-1 EACH PO; -FUROSEMIDE 40MG40 M1 PO; -LORTAB 5/3251 TAB PO; -NATURAL VITAM1000 MG PO; -PROMETHAZINE HC25 M1 PO
--- OUTSIDE RECORDS SUMMARY | 2016-11-30 06:59 | External Medical Summary Rpt ---
Author Author [facility] Organization [facility] Address Unknown Phone Unavailable Care Team Providers Care Supervising Law Enforcement Analyst Name Role Phone Arlette GARCÍA PCP [phone] Encounter CINTIA SHEA [id number] Date(s): 04/14/16 - 05/05/16 St[facility] [address] [place] [address]- [phone] Discharge Disposition: OP Self Care or Home Attending Physician: RITA CORNELL MD-INT Admitting Physician: RITA CORNELL MD-INT Referring Physician: TWAN BALTAZAR MD-TAJ Reason for Visit SONJA ref by Dr Baltazar Vital Signs No data available for this section Problem List Condition Effective Status Health Informant Dates Status H/O Active patient migraine(Con firmed) Seizure(Conf Active patient [facility]med) Allergies, Adverse Reactions, Alerts Substance Reaction Severity Status predniSONE Active Medications No data available for this section Results No data available for this section Immunizations No data available for this section Procedures No data available for this section Social History Social History Response Type Smoking Status Never smoker Assessment and Plan No data available for this section Hospital Discharge Instructions No data available for this section
--- OUTSIDE RECORDS SUMMARY | 2016-11-30 06:59 | External Medical Summary Rpt ---
Author Author CINTIA [facility] Organization [facility] Address Unknown Phone Unavailable Care Team Providers Care Corsage Maker Name Role Phone Arlette GARCÍA PCP [phone] Encounter CINTIA SHEA [id number] Date(s): 04/14/16 - 05/05/16 St[facility]ie [facility] [address] [place] [address]- [phone] Discharge Disposition: OP Self Care or Home [...]
--- OUTSIDE RECORDS SUMMARY | 2016-11-30 07:00 | External Medical Summary Rpt ---
Author Author [facility] Organization [facility] Address Unknown Phone Unavailable Purpose Continuity of Care Document - through 2016
--- OUTSIDE RECORDS SUMMARY | 2016-11-30 07:00 | External Medical Summary Rpt ---
Author Author [facility], [employer] Organization [employer] Address Unknown Phone Unavailable
--- OUTSIDE RECORDS SUMMARY | 2016-11-30 07:00 | External Medical Summary Rpt ---
Author Author , Organization [employer] Address Unknown Phone Unavailable Care Team Providers Care Secretary Book Keeper Name Role Phone Amor Torres MD, Unavailable Unavailable Amor Torres MD Purpose Continuity of Care Document - 03-10-2013 through 2016 Problems Code Diagnosis DOS Provider Status 272.4 272.4 05-20-2013 [place] HYPERLIPIDE [facility] NEC/NOS Hospital 345.90 345.90 05-20-2013 [place] EPILEPSY [facility] UNSPEC W/O Hospital MENTION INTRACTABLE EPILEPSY 401.9 401.9 05-20-2013 [place] HYPERTENSIO [facility] N NOS Hospital 719.46 719.46 05-20-2013 [place] JOINT [facility] PAIN-L/LEG Hospital V14.8 V14.8 05-20-2013 [place] HX-DRUG [facility] ALLERGY [facility] Hospital V45.86 V45.86 05-20-2013 [place] BARIATRIC [facility] SURGERY Hospital STATUS V58.69 V58.69 OTH 05-20-2013 [place] MED,LT,CURR [facility] ENT USE Hospital 716.96 716.96 05-14-2013 [place] ARTHROPATHY [facility] NOS-L/LEG Hospital 780.39 780.39 05-14-2013 [place] OTHER [facility] CONVULSIONS [facility] [id number] J18.9 PNEUMONIA, UNSPECIFIED ORGANISM J96.91 RESPIRATORY FAILURE, UNSPECIFIED WITH HYPOXIA K56.69 OTHER INTESTINAL OBSTRUCTION R10.9 UNSPECIFIED ABDOMINAL PAIN Allergies, Adverse Reactions, Alerts Type Allergy to substance Adverse Reaction to Substance Substance Reaction Severity NO KNOWN ALLERGIES Unknown Unknown STEROIDS HALLUCINATIONS Intermediate Medications Na ND Rx Da Fi Fi Am Da Di Ph RX Ph St me C No te ll ll ou ys ag ar # ys at rm s nt no ma ic us Or Da si cy ia de te s n re d BU 55 10 0 No TO 39 -2 RP 00 1- Lo AWAD 18 20 ng NO 40 13 er L 1 2 Ac MG ti /M ve L AL ND 00 10 0 No OM 64 -2 ET 11 1- Lo AWAD 49 20 ng ZI 53 13 er NE 5 Ac 25 ti ve MG /M L AM PU L KE 00 10 0 No TO 40 -1 RO 93 5- Lo LA 79 20 ng C 60 13 er 60 1 Ac MG ti /2 ve ML AL Vital Signs 05-20-2013 02:49 Name Value Interpretat Reference Comment ion Range Body 98.1 [degF] Temperature BP 102 mm[Hg] Diastolic BP Systolic 119 mm[Hg] Heart 104 /min Rate/Pulse O2% 96 % Respiratory 20 /min Rate 05-14-2013 04:08 Name Value Interpretat Reference Comment ion Range Body 97.2 [degF] Temperature BP 99 mm[Hg] Diastolic BP Systolic 129 mm[Hg] Heart 100 /min Rate/Pulse O2% 98 % Respiratory 20 /min Rate 03-10-2013 14:59 Name Value Interpretat Reference Comment ion Range Body 97.8 [degF] Temperature BP 100 mm[Hg] Diastolic BP Systolic 160 mm[Hg] Heart 77 /min Rate/Pulse O2% 91 % Respiratory 20 /min Rate 03-10-2013 14:06 Name Value Interpretat Reference Comment ion Range BP 99 mm[Hg] Diastolic BP Systolic 139 mm[Hg] Heart 78 /min Rate/Pulse O2% 94 % Respiratory 19 /min Rate Results Labs Lab Lab Date Result Refere Interp Status Commen Order Detail nces retati t Range on STREP SCREEN (RAPID) (03-10-2013 13:00) STREP NEGATIV complet SCREEN 013 E ed (RAPID) 13:00 Encounters Encounter Start End Date Code Location Performer Type Date Emergency ORI Torres MD (ER) 3 02:26 3 02:52 [facility] Emergency ORI Torres MD (ER) 3 04:14 3 04:14 [facility] Emergency ORI Enciso MD (ER) 3 13:40 3 15:14 [facility]
--- OUTSIDE RECORDS SUMMARY | 2016-11-30 07:00 | External Medical Summary Rpt ---
Demographics Preferred Language Sinhala Marital Status Unknown Yazidism Affiliation Unknown Race Unknown Ethnic Group Unknown Author Author , Organization [employer] Address Unknown Phone Unavailable Purpose Continuity of Care Document - through 2016 Immunization No patient found.
--- OUTSIDE RECORDS SUMMARY | 2016-11-30 07:00 | External Medical Summary Rpt ---
Author Author , Organization [employer] Address Unknown Phone Unavailable Care Team Providers Care Product Marketing Intern Name Role Phone Amor Torres MD, Unavailable Unavailable Amor Torres MD Purpose Continuity of Care Document - 03-10-2013 through 2016 Problems Code Diagnosis DOS Provider Status 272.4 272.4 05-20-2013 [place] HYPERLIPIDE [facility] NEC/NOS Hospital 345.90 345.90 05-20-2013 [place] EPILEPSY [facility] UNSPEC W/O Hospital MENTION INTRACTABLE EPILEPSY 401.9 401.9 05-20-2013 [place] HYPERTENSIO [facility] N NOS Hospital 719.46 719.46 05-20-2013 [place] JOINT [facility] PAIN-L/LEG Hospital V14.8 V14.8 05-20-2013 [place] HX-DRUG [facility] ALLERGY [facility] Hospital V45.86 V45.86 05-20-2013 [place] BARIATRIC [facility] SURGERY Hospital STATUS V58.69 V58.69 OTH 05-20-2013 [place] MED,LT,CURR [facility] ENT USE Hospital 716.96 716.96 05-14-2013 [place] ARTHROPATHY [facility] NOS-L/LEG Hospital 780.39 780.39 05-14-2013 [place] OTHER [facility] CONVULSIONS [facility] [id number] J18.9 PNEUMONIA, UNSPECIFIED ORGANISM J96.91 RESPIRATORY FAILURE, [...] Ac MG ti /M ve L AL MA 00 10 0 No OM 64 -2 [...] Torres MD (ER) 3 02:26 3 02:52 [facility] Emergency ORI Torres MD (ER) 3 04:14 3 04:14 [facility] Emergency ORI Enciso MD (ER) 3 13:40 3 15:14 [facility]
--- OUTSIDE RECORDS SUMMARY | 2016-11-30 07:00 | External Medical Summary Rpt ---
Demographics Preferred Language Setswana Marital Status Unknown Pentecostal Affiliation Unknown Race Unknown Ethnic Group Unknown Author Author , Organization [employer] Address Unknown Phone Unavailable Purpose Continuity of Care Document - through 2016 Immunization No patient found.
--- NOTE | 2016-11-30 07:34 | PHARMACY CLINIC NOTE ---
Patient Demographics Patient Demographics Admission date: 11/30/16 Date: 11/30/16 Time: 732 Allergies Coded Allergies: cortisone (GET CONFUSED, SHAKY 11/25/16) prednisone (NA-HALLUCINATIONS 11/25/16) HEIGHT- FT: 5 IN: 3.00 VTE General Information Disclaimer The following section includes nursing documentation that has been pulled in for pharmacy review. Clinical trial participant? No VTE prophylaxis NQF [id number] VTE prophylaxis ordered? Yes Type of prophylaxis/treatment: ICD (POST OP) at 0733
--- NOTE | 2016-11-30 12:21 | Anesthesia Record ---
Anesthesia Record Part II Discharge time: 1240 Destination: Second Floor PACU nurse assessment review? Yes Patient is: Awake, Stable Anesthesia complications? No at 1222
--- NOTE | 2016-11-30 12:21 | Anesthesia Record ---
Anesthesia Record Part I Total IV fluids: 3000 EBL (ml): 250 Urine Output: 1200 B/P: 123/73 % SaO2: 95 Pulse: 88 Resps: 16 Temp: 98.1 Patient is: Drowsy, Nasal O2, Stable Stable to PACU at: 1210 at 1220
--- NOTE | 2016-11-30 12:21 | Operative Note ---
Surgeon/Diagnoses Surgeon/Review Manager(s) Date of procedure: 11/30/16 Surgeon: Sohail Segura Review Manager(s): Callie Guadarrama Diagnoses Pre-op diagnosis: Colon cancer Post-op diagnosis Same Procedure Procedure Procedure: RIGHT hemicolectomy with ileocolic anastomosis Indications: AMANDA VILLALOBOS is a 56 year-old Female with a history of cancer. She has previously had a history of colon polyps. She underwent recent colonoscopy which revealed a mass in the ascending colon near the hepatic flexure. Biopsies were performed which revealed adenocarcinoma. She underwent CT scan which revealed no evidence of any definite mass and no evidence of any metastatic disease. She was sent for surgical consultation. Options were discussed. Plan was for resection. Findings: No evidence of any obvious metastatic disease. Moderately small palpable mass in the ascending colon proximal to the hepatic flexure. Multiple prior surgeries. Friable tissues. Procedure Description: Patient had undergone outpatient mechanical and antibiotic bowel preparation. She was brought to the operating room after consent was obtained. She was given broad-spectrum preoperative intravenous antibiotic. General anesthesia was induced via endotracheal tube. De La Torre catheter was placed for bladder decompression. She had sequential compression devices placed to bilateral lower extremities. Her abdomen was prepped and draped in the standard surgical fashion. Upper midline skin incision was made and dissection was carried down through subcutaneous tissues to the fascia. Peritoneal cavity was entered and exposure was achieved. Ultimately the previous Kaylie ink injected at the biopsy site colonoscopically was identified. Retractors were inserted. Colon was mobilized by dividing the peritoneum along the white line of Toldt. It were some adhesions to the liver which were taken down using electrocautery. The distal terminal ileum was divided with a LATISHA 75 linear cutting stapling device. Proximal transverse colon was divided in a similar fashion. RIGHT colon was resected by dividing the mesenteric tissues with César ultrasonic harmonic jovita with clamping divided and ligating the vascular branches with Vicryl ties. The RIGHT colic artery was doubly clamped and ligated with 0 Nurolon. RIGHT colon was sent off as a specimen. An end-to-end, functional side to side anastomosis was created with the LATISHA-75 linear cutting type stapling device. The enterotomy was closed with a TX 60 B type stapling device. However there was some residual enterotomy which was closed with 3-0 Vicryl and then the staple line was oversewn with interrupted 30 Surgilon. However this time and appears though there was some twisting of the mesentery likely from the patient's prior Ruby-en -Y gastric bypass. Plan was made to resect the anastomosis. The ileum and small bowel were divided close to the anastomosis with LATISHA stapling device. The small amount of residual mesentery was clamped divided and ligated with Vicryl ties. Once the small bowel was oriented a [id number], functional and and, anastomosis was created with a LATISHA-75 type stapling device. The enterotomy was closed with a TX 60 B type stapling device. A couple of 30 Surgilon sutures were placed at the staple line angle and at the confluence of staple line in the anastomosis. Anastomosis appeared patent and intact and viable. The mesenteric defect was closed with a couple of running 2-0 Vicryl sutures. Nasogastric tube was placed by anesthesia but is difficult to palpate this being within the gastric lumen due to prior surgery. Limited palpation was performed of the liver due to her multiple prior surgeries. However, there was no obvious metastatic disease. Enteric contents returned to the peritoneal cavity. Thorough irrigation was performed and appeared to be good hemostasis. Fascia was closed with a running number 2 Novofil 2. Subcutaneous tissues were irrigated. Skin was closed with skin karyna. Clean dry sterile dressing was applied. EBL (ml): 250 Anesthesia: GETA Specimens: RIGHT colon Disposition Disposition: To PACU at 1220
[2016-11-30 14:22] LABS: LYMPH # 0.7 K/mm3 (0.7-4.5); LYMPH % 8.7 % (10-50.0)
[2016-11-30 14:26] LABS: HEMOGLOBIN 9.8 g/dL (12.2-16.2)
[2016-11-30 14:59] LABS: URINE BILIRUBIN - DIPSTICK NEGATIVE (NEG); URINE BLOOD NEGATIVE (NEG)
[2016-11-30 17:10] LABS: URINE SQUAMOUS CELLS OCC #/hpf (0-5)
[2016-12-01] VITALS (13 sets, daily range): BP systolic 113–147; BP diastolic 54–92
[2016-12-01 06:17] LABS: HEMOGLOBIN 9.5 g/dL (12.2-16.2); LYMPH # 1.6 K/mm3 (0.7-4.5); LYMPH % 14.5 % (10-50.0)
--- NOTE | 2016-12-01 07:48 | CONSULT NOTE ---
Standard Demographics Patient Demo Date of Consultation: 12/01/16 Referring Provider: Sohail Segura MD Reason for Consultation: medical management PRIMARY DIAGNOSIS: COLON CANCER Allergies: Coded Allergies: cortisone (GET CONFUSED, SHAKY 11/30/16) prednisone (NA-HALLUCINATIONS 11/30/16) History of present illness: History of present illness: 56-year-old female who underwent RIGHT hemicolectomy with ileocolic anastomosis on November 30 is evaluated today for medical management purposes. Patient has a history of hypertension, migraine headaches, seizure disorder. This morning her only complaint is some abdominal pain. She denies nausea. She has been tolerating ice chips. NG tube in place Past medical history: Family HX Family Hx Insignificant No Diabetes No CAD Yes Hypertension Yes Hyperlipidemia Yes Cancer Yes TB No Immunization HX DT/Tetanus Unknown Flu Refused Pneumonia Refuses TB Test in last year No General CAD? No Angina: No PA: No Hypertension? Yes Hyperlipidemia? Yes CHF? No DVT? No PE? No COPD? No Asthma? No Anemia? No GERD? Yes Gastric ulcers? No GI Bleed? No Hernia? No Thyroid Problems? No Hypothyroidism? No CVA? No Seizures? Yes Diabetes? No Renal Insuffiency? No UTI? No Stones? Yes BPH? No GB Disease: Yes Nephritic Syndrome? No Asplenia? No Hepatitis? No Sickle Cell Disease? No Arthritis? Yes Migraines? Yes Cataracts? No Glaucoma? No MRSA? No HIV? No TB? No Anxiety? Yes Depression? Yes Cancer? Yes Site: COLON Past Surgical HX Previous Surgery?Y Gallbladd Appendectomy GALL STONES TUBAL GASTRIC BYPASS Current home meds: [employer] Device (Oxygen, Portable) 1 UNIT IH CONSTANT #1 DEV Ref 5 Prov: 09/02/16 Device (Oxygen (Concentrator)) 1 UNIT IH CONSTANT #1 DEV Ref 5 Prov: 09/02/16 Reported Medications APAP 300MG W/CODEINE 30MG (Acetaminophen-Cod #3 Tablet) 1 TAB PO Q6HP PYRIDOXINE HCL (Pyridoxine (B6) 50MG) 50 MG PO DAILY Escitalopram Oxalate (Lexapro 10MG) 10 MG PO DAILY NORTRIPTYLINE HCL (Nortriptyline 25MG Cap) 25 MG PO QHS Levetiracetam (Keppra Xr) 1,500 MG PO BID Divalproex Sodium (Depakote) 750 MG PO BID Verapamil Hcl (Verapamil) 120 MG PO TID Mv-Mn/Iron/FA/Herbal Cmplx#190 (Vitamin D3 Complete Caplet) 1 EACH PO WEEKLY Losartan Potassium (Losartan 100MG) 100 MG PO DAILY PROMETHAZINE W/CODEINE (Promethazine-Codeine Syrup) 2.5 ML PO Q4HP PRN COUGH Social Hx: Pt is a non-smoker Patient uses alcohol never Patien't marital status is Patient's support system is good Pt uses illicit drugs? No Standard Review of Systems General see HPI. Respiratory No: cough, orthopnea, shortness of breath. Cardiovascular No chest pain, No edema Genitourinary see HPI. Exam: Lab data for last 24 hours: Laboratory Tests 12/01/16 0555: Sodium 139, Potassium 4.0, Chloride 105, Carbon Dioxide 31, BUN 4 L, Creatinine 0.7, Estimated Creat Clear 165, Estimated GFR (MDRD) 86, Glucose 101, Calcium 7.9 L, Total Bilirubin 0.3, AST 40 H, ALT 40, Alkaline Phosphatase 93, Total Protein 5.4 L, Albumin 2.2 L, Globulin 3.2, Albumin/Globulin Ratio 0.7 L, WBC 10.9 H, RBC 3.62 L, Hgb 9.5 L, Hct 30.7 L, MCV 84.7, RDW 16.8, Plt Count 245 , MPV 5.7 L, Gran % 74.3, Gran # 8.1 H, Lymphocytes % 14.5, Monocytes % 10.7 H, Eosinophils % 0.3, Basophils % 0.2, Lymphocytes # 1.6, Monocytes # 1.2 H, Eosinophils # 0.0, Basophils # 0.0, PUBS MCHC 31.0 L, MCH 26.3 L 11/30/16 1417: WBC 8.4, RBC 3.81 L, Hgb 9.8 L, Hct 31.5 L, MCV 82.7, RDW 16.8, Plt Count 221 , MPV 5.7 L, Gran % 83.8 H, Gran # 7.0, Lymphocytes % 8.7 L, Monocytes % 7.2, Eosinophils % 0.2, Basophils % 0.1, Lymphocytes # 0.7, Monocytes # 0.6, Eosinophils # 0.0, Basophils # 0.0, PUBS MCHC 31.5 L, MCH 26.1 L 11/30/16 0850: Urine Color YELLOW, Urine Appearance CLEAR, Urine pH 6.0, Ur Specific [place] 1.025, Urine Protein NEGATIVE, Urine Ketones NEGATIVE, Urine Blood NEGATIVE, Urine Nitrate NEGATIVE, Urine Bilirubin NEGATIVE, Urine Urobilinogen 0.2, Ur Leukocyte Esterase NEGATIVE, Urine WBC 5-10, Ur Squamous Epith Cells OCC, Urine Bacteria 1+, Urine Mucus 2+, Urine Glucose NEGATIVE Microbiology 11/30 0850 URINE CATH: Urine Culture - RECD Admission vital signs: 1ST Vital Signs Result Date Time B/P 144/76 11/30 0735 Temp 98.1 11/30 0735 Pulse 92 11/30 0735 Resp 20 11/30 0735 Pulse Ox 97 11/30 0742 O2 Delivery OXYGEN 11/30 1210 O2 Flow Rate 2 11/30 1300 Exam General appearance: alert, active, awake Cardiovascular: regular rate & rhythm Respiratory: clear to auscultation ABD: obese and soft. Bowel sounds are hypoactive Extremities: moves all Plan: Problem List 1. Colon cancer 2. Status post right hemicolectomy Plan: Continue patient's home medicines. Daily labs follow H and H. I had a long discussion with the patient about the normal postoperative course from intra- abdominal surgery
--- NOTE | 2016-12-01 09:37 | POST-OP PROGRESS NOTE ---
Post op subjective data Subjective data: AMANDA VILLALOBOS is a 56 F . She is status post post op day # . Her wound is healing well without signs symptoms of infection.She reports her last pain level as 0 on a 0-10 pain scale. Patient without significant complaints. Post op assessment findings Assessment Exam General appearance: normal appearance, alert ABD: soft, tenderness Post op patient plan Plan: IV fluids, DC NG This inpt stay is expected to cross 2 MNs from start of care Yes at 0936
[2016-12-01] MEDS ORDERED: NATURAL VITAM1000 MG PO (10:31)
[2016-12-01] MEDS ORDERED: VITAMIN B-12100 MCG PO (10:32)
[2016-12-01] MEDS ORDERED: VITAMIN D400 UNI1 PO (10:33)
[2016-12-01] MEDS ORDERED: FUROSEMIDE 40MG40 M1 PO (11:02)
[2016-12-01] MEDS ORDERED: PROMETHAZINE HC25 M1 PO (11:03)
[2016-12-02] VITALS (18 sets, daily range): BP systolic 101–152; BP diastolic 54–86
--- NOTE | 2016-12-02 07:29 | ACUTE CARE PROGRESS NOTE (QUA) ---
Progress Notes Subjective Date 12/02/16 Time 0727 Note Patient has no complaints this morning. Abdominal pain is well-controlled. She denies cough or shortness of breath. She appears comfortable. Lungs are clear with symmetric expansion. Heart has regular rate and rhythm. Abdomen is soft with decreased bowel sounds. Extremities are without edema. Restart Lasix and verapamil. Patient may come out of step down. Continue postop care Objective Findings Last VS-Temp:98.0 B/P:136/70 Pulse:103 Resp:18 SaO2:93 ROOM AIR Last weight lbs:263 oz:2 K.351 Method:Bed Scales Assessment/Plan Problem List 1. Colon cancer 2. Status post right hemicolectomy Patient condition Stable Plan: continue current care This inpt stay is expected to cross 2 MNs from start of care Yes at 0784
[2016-12-02 07:59] LABS: HEMOGLOBIN 8.6 g/dL (12.2-16.2); LYMPH # 2.4 K/mm3 (0.7-4.5); LYMPH % 19.3 % (10-50.0)
--- NOTE | 2016-12-02 08:32 | SURGEON PROGRESS NOTE ---
Subjective data Subjective data: AMANDA VILLALOBOS is a 56 F .Patient denies complaint of nausea and vomitting.She reports her last pain level as 0 on a 0-10 pain scale. No complaints. No nausea with NG out. No flatus. Assessment findings Assessment Exam General appearance: normal appearance, alert ABD: soft Comment: Hypoactive bowel sounds. Patient plan Plan: IV fluids Additional data: DC De La Torre Increase ambulation Follow H/H at 0832
[2016-12-03] VITALS (34 sets, daily range): BP systolic 94–156; BP diastolic 45–96
--- NOTE | 2016-12-03 07:18 | ACUTE CARE PROGRESS NOTE (QUA) ---
Progress Notes Subjective Date 12/03/16 Time 0716 Note Patient has no complaints this morning. She denies flatus or bowel movement. She denies shortness of breath. She appears comfortable. Lung exam reveals clear breath sounds. Heart has regular rate and rhythm. Abdomen is soft with decreased bowel sounds Objective Findings Last VS-Temp:97.7 B/P:115/70 Pulse:94 Resp:19 SaO2:93 OXYGEN Last weight lbs:267 oz:3 K.194 Method:Bed Scales Laboratory Tests 12/02/16 0750: Sodium 138, Potassium 3.8, Chloride 102, Carbon Dioxide 31, BUN 7, Creatinine 0.6, Estimated Creat Clear 193, Estimated GFR (MDRD) 103, Glucose 81, Calcium 8.0 L, WBC 12.4 H, RBC 3.31 L, Hgb 8.6 L, Hct 27.7 L, MCV 83.7, RDW 16.5, Plt Count 225, MPV 6.0 L, Gran % 67.8, Gran # 8.4 H, Lymphocytes % 19.3, Monocytes % 10.9 H, Eosinophils % 1.8, Basophils % 0.2, Lymphocytes # 2.4, Monocytes # 1.4 H, Eosinophils # 0.2, Basophils # 0.0, PUBS MCHC 31.2 L, MCH 26.1 L Assessment/Plan Problem List 1. Colon cancer 2. Status post right hemicolectomy Patient condition Stable Plan: continue current care This inpt stay is expected to cross 2 MNs from start of care Yes at 0717
[2016-12-03 07:37] LABS: LYMPH # 1.5 K/mm3 (0.7-4.5); LYMPH % 16.9 % (10-50.0)
[2016-12-03 07:48] LABS: HEMOGLOBIN 7.7 g/dL (12.2-16.2)
--- NOTE | 2016-12-03 09:22 | SURGEON PROGRESS NOTE ---
Subjective data Subjective data: AMANDA VILLALOBOS is a 56 F .Patient denies complaint of nausea and vomitting.She reports her last pain level as 0 on a 0-10 pain scale. Feels great. No complaints. No nausea. Voiding without difficulty after catheter removed. Still not passing flatus. Assessment findings Assessment Exam General appearance: normal appearance, alert ABD: soft Patient plan Plan: IV fluids Additional data: Transfuse 2 units PRBCs today for decreasing H/H. at 0926
[2016-12-03 09:51] LABS: ABO BLOOD TYPE A; RH BLOOD TYPE POSITIVE
[2016-12-03 09:55] LABS: ANTIHUMAN GLOB CROSSMATCH COMPAT
[2016-12-03 09:56] LABS: ANTIHUMAN GLOB CROSSMATCH COMPAT
[2016-12-04] VITALS (12 sets, daily range): BP systolic 106–141; BP diastolic 61–73
--- NOTE | 2016-12-04 07:43 | ACUTE CARE PROGRESS NOTE (QUA) ---
Progress Notes Subjective Date 12/04/16 Time 0741 Patient/family reports: no complaints Objective Findings Last VS-Temp:97.8 B/P:130/69 Pulse:89 Resp:20 SaO2:96 OXYGEN Last weight lbs:267 oz:3 K.194 Method:Bed Scales Laboratory Tests 12/03/16 1720: Hgb 13.0, Hct 41.0 12/03/16 1340: Misc Test Units BLOOD UNIT RELEASE 12/03/16 1026: Misc Test Units BLOOD UNIT RELEASE 12/03/16 0840: Antibody Screen NEGATIVE, Miscellaneous Test POSITIVE Exam General appearance: alert, awake, no acute distress Cardiovascular: regular rate & rhythm Respiratory: clear to auscultation ABD: soft, no tenderness, abnormal bowel sounds (hypoactive) Reviewed: medications, vital signs Assessment/Plan Problem List 1. Colon cancer 2. Status post right hemicolectomy Patient condition Stable Plan: continue current care This inpt stay is expected to cross 2 MNs from start of care Yes at 0743
--- NOTE | 2016-12-04 09:40 | SURGEON PROGRESS NOTE ---
Subjective data Subjective data: AMANDA VILLALOBOS is a 56 F .Patient denies complaint of nausea and vomitting.She reports her last pain level as 0 on a 0-10 pain scale. No complaints. No nausea. Chewing gum but still no passage of flatus. Assessment findings Assessment Exam General appearance: normal appearance, alert ABD: soft Comment: Hypoactive bowel sounds. Incision clean. Patient plan Plan: Ambulate, Up in chair, Sips at 0939
[2016-12-05 01:48] VITALS: BP 120/69
[2016-12-05 04:39] VITALS: BP 130/61
[2016-12-05 06:37] LABS: LYMPH # 1.3 K/mm3 (0.7-4.5); LYMPH % 18.4 % (10-50.0)
[2016-12-05 07:01] LABS: HEMOGLOBIN 10.2 g/dL (12.2-16.2)
--- NOTE | 2016-12-05 07:37 | ACUTE CARE PROGRESS NOTE (QUA) ---
Progress Notes Subjective Date 12/05/16 Time 0735 Note Patient has no complaints. She denies flatus or bowel movements. She is tolerating popsicles and small amounts of juice. She looks well. She is sitting up in the chair this morning. Lungs are clear. Heart has a regular rate and rhythm. Abdomen is obese and soft with diminished bowel sounds Objective Findings Last VS-Temp:98.1 B/P:130/61 Pulse:84 Resp:18 SaO2:95 OXYGEN Last weight lbs:267 oz:3 K.194 Method:Bed Scales Laboratory Tests 12/05/16 0625: Sodium 138, Potassium 3.5, Chloride 100, Carbon Dioxide 36 H, BUN 4 L, Creatinine 0.5 L, Estimated Creat Clear 235 H, Estimated GFR (MDRD) 127, Glucose 71 L, Calcium 8.3 L, WBC 6.7, RBC 3.85 L, Hgb 10.2 L, Hct 32.9 L, MCV 85.4, RDW 15.9, Plt Count 266, MPV 5.4 L, Gran % 66.0, Gran # 4.6, Lymphocytes % 18.4, Monocytes % 11.5 H, Eosinophils % 3.8, Basophils % 0.3, Lymphocytes # 1.3, Monocytes # 0.8, Eosinophils # 0.3, Basophils # 0.0, PUBS MCHC 30.9 L, MCH 26.4 L Assessment/Plan Problem List 1. Colon cancer 2. Status post right hemicolectomy Patient condition Stable This inpt stay is expected to cross 2 MNs from start of care Yes at 0736
[2016-12-05 08:00] VITALS: BP 130/82
--- NOTE | 2016-12-05 08:21 | SURGEON PROGRESS NOTE ---
Subjective data Subjective data: AMANDA VILLALOBOS is a 56 F .Patient denies complaint of nausea and vomitting.She reports her last pain level as 0 on a 0-10 pain scale. No complaints. Tolerating some sips. No nausea but still not passing flatus. Has not been out of room. Assessment findings Assessment Exam General appearance: normal appearance, alert ABD: soft Patient plan Plan: Advance diet, Ambulate, Up in chair Additional data: Patient needs to ambulate. Will go ahead and give clear liquids. DC supplemental oxygen. Ambulate in hallways. at 0821
[2016-12-05 08:59] VITALS: BP 130/82
[2016-12-05 16:00] VITALS: BP 104/66; BP 116/50
[2016-12-05 19:53] VITALS: BP 120/69
[2016-12-06] VITALS (7 sets, daily range): BP systolic 98–135; BP diastolic 49–66
--- NOTE | 2016-12-06 07:10 | ACUTE CARE PROGRESS NOTE (QUA) ---
Progress Notes Subjective Date 12/06/16 Time 0709 Note Patient had a bowel movement yesterday. She has tolerated liquid diet. She looks well and in no distress. Patient is improving. Primary management per Dr. Segura Objective Findings Last VS-Temp:98.5 B/P:135/58 Pulse:90 Resp:20 SaO2:94 ROOM AIR Last weight lbs:267 oz:3 K.194 Method:Bed Scales Assessment/Plan Problem List 1. Colon cancer 2. Status post right hemicolectomy Patient condition Improving This inpt stay is expected to cross 2 MNs from start of care Yes at 0710
--- NOTE | 2016-12-06 07:27 | SURGEON PROGRESS NOTE ---
Subjective data Subjective data: AMANDA VILLALOBOS is a 56 F .Patient denies complaint of nausea and vomitting.She reports her last pain level as 6 on a 0-10 pain scale. Patient tolerated clears and has had a bowel movement. Had "skin tear" on legs. Nursing dressed wound due to drainage. Assessment findings Assessment Exam General appearance: normal appearance ABD: soft Comment: Wound with erythema and cloudy serosanguineous drainage from central aspect. Posterior proximal thigh with blistering and excoriated epidermis. Patient plan Plan: Advance diet Additional data: Topical antibiotic ointment to skin injury. Will open central aspect of wound today for possible mild superficial infection. at 0067
--- NOTE | 2016-12-06 10:39 | ACUTE CARE PROGRESS NOTE (QUA) ---
Progress note: - Wound was very minimally opened at site of minor erythema and induration. No significant purulent. Wound packed with 1" pain gauze. Cultures were sent. at 1038
[2016-12-07 03:35] VITALS: BP 117/57
--- NOTE | 2016-12-07 07:09 | SURGEON PROGRESS NOTE ---
Subjective data Subjective data: AMANDA VILLALOBOS is a 56 F .Patient denies complaint of nausea and vomitting.She reports her last pain level as 0 on a 0-10 pain scale. No major complaints. Tolerating full liquid diet. Moved bowels again. Assessment findings Assessment Exam General appearance: normal appearance, alert ABD: soft, Wound with minor erythema. Some drainage. Patient plan Plan: IV fluids, Wound care Additional data: Continue dressing changes. Will check cultures. Possible DC home with dressing changes later. at 0708
[2016-12-07 08:32] VITALS: BP 128/66
[2016-12-07 08:54] VITALS: BP 128/66
[2016-12-07] MEDS ORDERED: AUGMENTIN 875-1 EACH PO (13:31)
[2016-12-07] MEDS ORDERED: LORTAB 5/3251 TAB PO (13:32)
--- NOTE | 2016-12-07 13:41 | DISCHARGE SUMMARY STANDARD ---
Demographics Admit date: 11/30/16 Discharge date: 12/07/16 History of present illness History of present illness AMANDA VILLALOBOS is a 56 year-old Female with a history of cancer. She has previously had a history of colon polyps. She underwent recent colonoscopy which revealed a mass in the ascending colon near the hepatic flexure. Biopsies were performed which revealed adenocarcinoma. She underwent CT scan which revealed no evidence of any definite mass and no evidence of any metastatic disease. She was sent for surgical consultation. Options were discussed. Plan was for resection. Hospital Course Hospital Course: Patient was taken to the operating room on 11/30/16 for scheduled laparotomy and RIGHT colon resection. She underwent said procedure. Please see operative dictation for complete details. She was admitted postoperatively for inpatient management. She was initially admitted to the stepdown unit. She had morphine [employer]. She did have a nasogastric tube placed and De La Torre catheter. Her primary care provider, Dr. Ramin Pulido, was consult for medical management. On postoperative day number 1 she had miniscule output from the nasogastric tube and this was discontinued however she remained on a nothing by mouth status. Following day she had her De La Torre catheter removed. She did have somewhat of a prolonged postoperative ileus. However she had no nausea or bloating. Her activity was slowly increased. She tolerated ice chips without difficulty. Ultimately the patient was started on a clear liquid diet which she tolerated. Shortly thereafter she began passing flatus and having bowel movements. Her diet was advanced to full liquids which she tolerated without difficulty. On postoperative day number 6 she had some cloudy serosanguineous drainage from the mid aspect of her wound. Several skin karyna were removed and a small amount of slightly purulent serosanguineous liquid was evacuated. Wound was packed with 1 inch plain packing gauze. Cultures were sent. Following day she had continued to move her bowels. Cultures were pending. Plan was made for discharge home with oral antibiotics and home health for dressing changes. I note, final pathology returned as a moderately differentiated invasive adenocarcinoma measuring 2 cm with 22 lymph nodes negative for carcinoma. Stage II A Discharge diagnoses Problem List 1. Colon cancer 2. Status post right hemicolectomy Medications Medications: Discharge meds are as noted. Follow up Follow up in office in: 5 DAYS with: Sohail Segura MD Comment: She is given new prescription for Lortab 5 mg (25) and a 7 day course of Augmentin for possible superficial wound infection. Cultures are pending. at 1341
[2016-12-07 14:29] VITALS: BP 128/66
== END 2016-12-07 15:10 | disposition home or self-care (01) | DRG 330 ==
LOC: SDC 06:52 → 2ND 06:57 → SDC 08:30 → 2ND 13:12
PROVIDERS: Family Medicine; Surgery
PROC: 0DTF0ZZ Resection of Right Large Intestine, Open Approach (ICD-10-PCS; principal; 2016-11-30 08:30)
DX: C18.2 Malignant neoplasm of ascending colon (principal); K91.3 Postprocedural intestinal obstruction; I10 Essential (primary) hypertension
CPT/HCPCS: G0238; J0131; J1335; J2405; P9016

== ENCOUNTER 2016-12-13 09:02 | Outpatient (CLI) | payer MEDICARE ==
[~2016-12-13 09:02] MED LIST changes: +AUGMENTIN 875-1 EACH PO; +FUROSEMIDE 40MG40 M1 PO; +LORTAB 5/3251 TAB PO; +NATURAL VITAM1000 MG PO; +PROMETHAZINE HC25 M1 PO
== END 2016-12-13 10:15 | disposition home or self-care (01) ==
LOC: COP 09:02
DX: C18.3 Malignant neoplasm of hepatic flexure (principal)
CPT/HCPCS: G0463

== ENCOUNTER → 2017-04-25 | Outpatient (CLI) | payer MEDICARE ==
[2017-04-25 11:14] LABS: BUN 17 mg/dL (7-18); GFR (ESTIMATED) 86 ML/MIN (59-)
== END ==
LOC: LAB 08:56
PROVIDERS: Psychiatry & Neurology Clinical Neurophysiology
DX: G43.709 Chronic migraine without aura, not intractable, without status migrainosus (principal)

== ENCOUNTER → 2017-06-26 | Outpatient (CLI) | payer MEDICARE ==
--- NOTE | 2017-06-26 10:15 | RADIOLOGY REPORT PS360 ---
CHEST(2 VIEWS-NOT PORTABLE) HISTORY: COUGH ORDERING PHYSICIAN: Ramin Pulido MD PATIENT AGE: 57 years COMPARISON: 09/08/2016 FINDINGS: The cardiomediastinal silhouette and pulmonary vascularity are within normal limits. Patchy consolidation is present in the superior segment of the left lower lobe and left perihilar region and left lower lobe. The remaining lungs are clear. No acute bony anomalies. IMPRESSION: Left lower lobe pneumonia
== END ==
LOC: RAD 09:16
DX: R05 Cough (principal)